=== PATIENT | female | born 1970 | race Caucasian/White ===

== ENCOUNTER 2016-06-21 22:41 | Inpatient (IN) | payer BC ==
[2016-06-21] MEDS ORDERED: Ondansetron 4 MG/2 ML SDV IVPUSH ONE (23:18)
[2016-06-21] MEDS ORDERED: HYDROmorphone 1 MG/ML Syringe IVPUSH ONE (23:18)
[2016-06-21] MEDS: Sodium Chloride 0.9% 1,000 ML IV SCH (23:36)
[2016-06-21] MEDS ORDERED: Ketorolac 30 MG/ML SDV IVPUSH STA (23:38)
[2016-06-22] MEDS ORDERED: Iopamidol 612 MG/ML 150 ML Bottle IVPUSH ONE (00:48)
[2016-06-22] MEDS ORDERED: Diatrizoate Meglumine/Diatrizoate Sodium 37% 120 ML Bottle PO ONE (00:48)
[2016-06-22] MEDS ORDERED: Insulin Regular, Human 100 Units/ML 3 ML Vial SUBCUT STA (01:05)
[2016-06-22] MEDS ORDERED: HYDROmorphone 1 MG/ML Syringe IVPUSH ONE (01:15)
--- NOTE | 2016-06-22 01:18 | EDM.PDOC ---
ED HPI GI/ABDOMINAL - General Chief Complaint: Abdominal Pain Stated Complaint: ABDOMIANL PAIN Time Seen by Provider: 06/21/16 22:53 Source of Information: Reports: Patient, Family (Daughter), RN notes reviewed History Limitations: Reports: No limitations - History of Present Illness INITIAL COMMENTS - FREE TEXT/NARRATIVE: The patient states that she developed right upper quadrant abdominal pain on , 06/09/2016. The pain has been waxing and waning since. She saw her PCP, Zulma Wetzel, earlier today. A CBC, CMP, lipase, CRP, hemoglobin A1c, urinalysis, and H. pylori Ab were obtained. The patient was found to have a WBC count slightly elevated at 10.20 with 1% bandemia. The remainder of the CBC was normal. The patient's blood glucose was found to be substantially elevated at 432, with a hemoglobin A1c of 9.3%. Her alkaline phosphatase was mildly elevated at 174. The remainder of the CMP was normal. The patient's lipase was found to be elevated at 629. Her CRP was elevated at 2.4. Her urinalysis was normal, and her H. pylori Ab was negative. A CT scan of the abdomen and pelvis was scheduled for tomorrow. The patient was prescribed metformin, of which she has taken one dose so far. The patient now presents to the ED with worsening pain. She is unable to describe its character, but notes that it feels similar to the biliary colic that she experienced prior to cholecystectomy in 1989. It radiates to her right mid back. The pain is not modifiable. No recent fever, nausea, or vomiting. The patient has chronic constipation and diarrhea due to irritable bowel syndrome. No recent urinary symptoms. - Related Data Allergies/ADRs: Allergies Allergy/AdvReac Type Severity Reaction Status Date / Time acetaminophen [From Vicodin] Allergy Hives Verified 06/21/16 22:51 hydrocodone [From Vicodin] Allergy Hives Verified 06/21/16 22:51 oxycodone Allergy Cannot Verified 06/21/16 22:51 Remember Home Meds: Home Meds Acetaminophen [Tylenol Extra Strength] 1,000 mg PO ONCALL PRN 06/21/16 [History] Citalopram Hydrobromide [Celexa] 40 mg PO DAILY 06/21/16 [History] Lisinopril 20 mg PO DAILY 06/21/16 [History] metFORMIN [Glucophage XR] 500 mg PO DAILY 06/21/16 [History] Past Medical History HEENT History: Reports: Impaired vision Other HEENT History: Wears glasses Cardiovascular History: Reports: Hypertension Gastrointestinal History: Reports: Hemorrhoids, Irritable bowel syndrome [employer]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: Musculoskeletal History: Reports: Arthritis Psychiatric History: Reports: Anxiety, Depression Endocrine/Metabolic History: Reports: Diabetes, type II, Obesity/BMI 30+ Dermatologic History: Reports: Psoriasis - Past Surgical History HEENT Surgical History: Reports: Adenoidectomy, Naso-sinus surgery (Rhinoplasty) , Oral surgery, Tonsillectomy GI Surgical History: Reports: Cholecystectomy (1997) Female Surgical History: Reports: Tubal ligation Musculoskeletal Surgical History: Reports: Arthroscopic knee (right), Shoulder surgery (left arthroscopic rotator cuff repair) Social & Family History - Tobacco Use Smoking Status *Q: Current Every Day Smoker Years of Tobacco use: 20 Packs/Tins Daily: 1 - Caffeine Use Caffeine Use: Reports: Soda - Alcohol Use Alcohol Use History: No - Recreational Drug Use Recreational Drug Use: Yes Recreational Drug Type: Reports: Cocaine, Oxycodone, Vicodin Recreational Drug Use Frequency: Not Used In Over 6 Months - Living Situation & Occupation Living situation: Reports: , with spouse Occupation: unemployed ED ROS GENERAL - Review of Systems Review Of Systems: See Below Constitutional: Reports: no symptoms HEENT: Reports: No symptoms Respiratory: Reports: No Symptoms Cardiovascular: Reports: No symptoms Endocrine: Reports: no symptoms GI/Abdominal: Reports: Abdominal pain (as per the HPI) : Reports: no symptoms Musculoskeletal: Reports: no symptoms Skin: Reports: no symptoms Neurological: Reports: No Symptoms Psychiatric: Reports: No symptoms Hematologic/Lymphatic: Reports: no symptoms Immunologic: Reports: no symptoms ED EXAM, GI/ABD - Physical Exam Exam: See Below Exam Limited By: No limitations General Appearance: alert, WD/WN, mild distress (appears uncomfortable) Eyes: bilateral: normal appearance, EOMI Ears: normal external exam, hearing grossly normal Nose: normal inspection, no blood Throat/Mouth: Normal inspection, Normal lips, Normal voice, No airway compromise Head: atraumatic, normocephalic Neck: normal inspection, full range of motion Respiratory/Chest: no respiratory distress, lungs clear, normal breath sounds, no accessory muscle use Cardiovascular: normal peripheral pulses, regular rate, rhythm, no gallop, no JVD, no murmur, no rub GI/Abdominal: normal bowel sounds, soft, no organomegaly, no distention, no abnormal bruit, no mass, tenderness (Significant, in the right upper quadrant and epigastrium only. Essentially nontender elsewhere.), other (Obese). No: Mcgarry's sign (Female) Exam: Deferred Rectal (Female) Exam: Deferred Back Exam: normal inspection, full range of motion. No: CVA tenderness (L), CVA tenderness (R) Extremities: normal inspection, normal range of motion, no pedal edema, normal capillary refill Neurological: alert, oriented, normal cognition, no motor/sensory deficits Psychiatric: normal affect Skin Exam: Warm, Dry, Intact, Normal color, No rash Lymphatic: no adenopathy Course - Vital Signs Last Recorded V/S: Last Vital Signs Temp 36.7 C 06/21/16 22:53 Pulse 94 06/21/16 22:53 Resp 16 06/21/16 22:53 BP 178/95 H 06/21/16 22:53 Pulse Ox 99 06/21/16 22:53 - Orders/Labs/Meds Orders: Active Orders 24 hr Category Date Time Status Abdomen Pelvis w Cont [CT] Stat Exams 06/21/16 23:18 Taken Sodium Chloride 0.9% [Normal Saline] 1,000 ml Med 06/21/16 23:30 Active IV ASDIRECTED Medication Orders Sodium Chloride (Normal Saline) 1,000 mls @ 150 mls/hr IV ASDIRECTED KERRI Last Admin: 06/21/16 23:36 Dose: 150 mls/hr Labs: Laboratory Tests 06/21/16 06/21/16 Range/Units 23:29 23:29 WBC 12.37 H (3.98-10.04) K/mm3 RBC 5.00 (3.98-5.22) M/mm3 Hgb 14.7 (11.2-15.7) gm/L Hct 40.7 (34.1-44.9) % MCV 81.4 (79.4-94.8) fl MCH 29.4 (25.6-32.2) pg MCHC 36.1 H (32.2-35.5) g/dl RDW Std Deviation 38.3 (36.4-46.3) fL Plt Count 299 (182-369) K/mm3 MPV 9.7 (9.4-12.3) fl Neutrophils % (Manual) 53 (40-60) % Band Neutrophils % 0 (0-10) % Lymphocytes % (Manual) 40 (20-40) % Atypical Lymphs % 0 % Monocytes % (Manual) 5 (2-10) % Eosinophils % (Manual) 2 (0.7-5.8) % Basophils % (Manual) 0 L (0.1-1.2) Platelet Estimate Adequate Plt Morphology Comment Normal RBC Morph Comment Normal Sodium 135 L (136-145) mEq/L Potassium 3.8 (3.5-5.1) mEq/L Chloride 97 L (98-107) mEq/L Carbon Dioxide 28 (21-32) mEq/L Anion Gap 13.8 (5-15) BUN 14 (7-18) mg/dL Creatinine 0.9 (0.55-1.02) mg/dL Est Cr Clr Drug Dosing 63.92 mL/min Estimated GFR (MDRD) > 60 (>60) mL/min BUN/Creatinine Ratio 15.6 (14-18) Glucose 331 H (74-106) mg/dL Calcium 8.8 (8.5-10.1) mg/dL Total Bilirubin 0.4 (0.2-1.0) mg/dL AST 11 L (15-37) U/L ALT 25 (14-59) U/L Alkaline Phosphatase 157 H (46-116) U/L Total Protein 7.7 (6.4-8.2) g/dl Albumin 3.8 (3.4-5.0) g/dl Globulin 3.9 gm/dL Albumin/Globulin Ratio 1.0 (1-2) Lipase 1056 H (73-393) U/L Meds: Medications Generic Name Dose Route Start Last Admin Trade Name Freq PRN Reason Stop Dose Admin Sodium Chloride 1,000 mls @ 150 mls/hr 06/21/16 23:30 06/21/16 23:36 Normal Saline IV 150 mls/hr ASDIRECTED KERRI Administration Discontinued Medications Generic Name Dose Route Start Last Admin Trade Name Freq PRN Reason Stop Dose Admin Diatrizoate Meglum/Diatrizoate Sod 90 ml 06/22/16 00:48 06/22/16 01:07 Gastrografin 37% PO 06/22/16 00:49 90 ml ONETIME ONE Administration Hydromorphone HCl 1 mg 06/21/16 23:18 Dilaudid IVPUSH 06/21/16 23:19 ONETIME ONE Hydromorphone HCl 1 mg 06/22/16 01:15 06/22/16 01:21 Dilaudid IVPUSH 06/22/16 01:16 1 mg ONETIME ONE Administration Insulin Human Regular 10 unit 06/22/16 01:05 06/22/16 01:27 Humulin R SUBCUT 06/22/16 01:06 10 unit ONETIME STA Administration Protocol Iopamidol 125 ml 06/22/16 00:48 06/22/16 01:06 Isovue-300 (61%) IVPUSH 06/22/16 00:49 125 ml ONETIME ONE Administration Ketorolac Tromethamine 30 mg 06/21/16 23:38 06/21/16 23:41 Toradol IVPUSH 06/21/16 23:39 30 mg ONETIME STA Administration Ondansetron HCl 4 mg 06/21/16 23:18 06/21/16 23:36 Zofran IVPUSH 06/21/16 23:19 4 mg ONETIME ONE Administration - Radiology Interpretation Free Text/Narrative:: CT of the abdomen and pelvis with oral and IV contrast is read by [facility] as "Pancreatic head pancreatitis. The amount of inflammatory changes minimal and the pancreas enhances normally." - Re-Assessments/Exams Free Text/Narrative Re-Assessment/Exam: 06/22/16 01:16 The patient has a history of opioid abuse, and we have been trying to avoid opioids during this ED visit, however, while we don't have the CT scan results back yet, the patient's lipase is up to 1056, and it is most likely that she has pancreatitis. She is complaining of increasing pain. I have ordered 1 mg IV Dilaudid. 06/22/16 01:38 Test results discussed with the patient. It appears that the patient has early pancreatitis. I'm recommending admission to the hospital for IV fluid and pain medication, with possible MRCP. The patient states that she has to go to [place] on 06/25/2016. I could not promise her that she will be fit for discharge by that time, but I feel that if she goes home now, she will almost certainly not be fit on Monday. The patient agrees to be admitted. 06/22/16 01:[address] Singer at 01:39. She agrees to admit the patient. Departure - Departure Time of Disposition: 01:44 Disposition: Admitted As Inpatient 64 Condition: fair Clinical Impression: Acute pancreatitis, Hyperglycemia due to type 2 diabetes mellitus - My Orders Last 24 Hours: My Active Orders 06/21/16 23:18 Abdomen Pelvis w Cont [CT] Stat 06/21/16 23:30 Sodium Chloride 0.9% [Normal Saline] 1,000 ml IV ASDIRECTED - Assessment/Plan Last 24 Hours: My Active Orders 06/21/16 23:18 Abdomen Pelvis w Cont [CT] Stat 06/21/16 23:30 Sodium Chloride 0.9% [Normal Saline] 1,000 ml IV ASDIRECTED
[2016-06-22] MEDS ORDERED: HYDROmorphone 1 MG/ML Syringe IVPUSH PRN (01:57)
[2016-06-22] MEDS ORDERED: Sodium Chloride 0.9% 1,000 ML IV SCH (02:00)
[2016-06-22] MEDS ORDERED: Ketorolac 30 MG/ML SDV IVPUSH ONE ×2 (02:01→08:00)
[2016-06-22] MEDS ORDERED: Ondansetron 4 MG/2 ML SDV IVPUSH PRN (02:04)
[2016-06-22] MEDS ORDERED: LORazepam 2 MG/ML MDV IVPUSH PRN (02:08)
[2016-06-22] MEDS: Prochlorperazine 10 MG/2 ML SDV IVPUSH SCH ×4 (02:33→21:20)
[2016-06-22] MEDS: Sodium Chloride 0.9% 1,000 ML IV SCH (07:10)
[2016-06-22] MEDS ORDERED: Ketorolac 30 MG/ML SDV IVPUSH SCH (09:00)
[2016-06-22] MEDS: Pantoprazole 40 MG Vial IVPUSH SCH ×2 (09:32→21:20)
[2016-06-22] MEDS: Enoxaparin 40 MG/0.4 ML Syringe SUBCUT SCH (09:32)
[2016-06-22] MEDS: Nicotine 21 MG/24 Hr Patch TRDERM SCH (12:36)
[2016-06-22] MEDS: Insulin Aspart 100 Units/ML 3 ML Pen SUBCUT SCH ×3 (12:39→21:32)
[2016-06-22] MEDS ORDERED: 50% Dextrose in Water 50 ML Syringe IVPUSH PRN (13:38)
--- NOTE | 2016-06-22 13:40 | PCM.HP ---
H&P History of Present Illness - General Date of Service: 06/22/16 Admit Problem/Dx: Admission Diagnosis/Problem Admission Diagnosis/Problem Acute pancreatitis Source of Information: Patient, Provider History Limitations: Reports: No limitations - History of Present Illness Initial Comments - Free Text/Narative: 45 year old female with abdominal pain is s/p cholecystectomy, has had intermittent RUQ abdominal pain. Her lipase level is >100o cf 629 on her most recent labs. She is a diabetic on metformin with an markedly elevated Hgb A1C at 9.3. The patient will be admitted for acute pancreatitis, and an AUTI will also be treated. Onset of Symptoms: Reports: gradual Symptom Onset Date: 06/09/16 Duration of Symptoms: Reports: Week(s):, Getting worse, Intermittent, Waxing/ waning Location: Reports: abdomen Quality: Reports: Same as previous episode, Sharp Improves with: Reports: Medication Worsens with: Reports: None Right Upper Abdomen Pain Score (Numeric/FACES): 5 - Related Data Allergies/Adverse Reactions: Allergies Allergy/AdvReac Type Severity Reaction Status Date / Time acetaminophen [From Vicodin] Allergy Hives Verified 06/21/16 22:51 hydrocodone [From Vicodin] Allergy Hives Verified 06/21/16 22:51 oxycodone Allergy Cannot Verified 06/21/16 22:51 Remember Home Medications: Home Meds Acetaminophen [Tylenol Extra Strength] 1,000 mg PO ONCALL PRN 06/21/16 [History] Citalopram Hydrobromide [Celexa] 40 mg PO DAILY 06/21/16 [History] Lisinopril 20 mg PO DAILY 06/21/16 [History] metFORMIN [Glucophage XR] 500 mg PO DAILY 06/21/16 [History] Past Medical History HEENT History: Reports: Impaired vision Other HEENT History: Wears glasses Cardiovascular History: Reports: Hypertension Gastrointestinal History: Reports: Hemorrhoids, Irritable bowel syndrome [employer]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 Musculoskeletal History: Reports: Arthritis Neurological History: Reports: Migraines Psychiatric History: Reports: Anxiety, Depression Endocrine/Metabolic History: Reports: Diabetes, type II, Obesity/BMI 30+ Dermatologic History: Reports: Psoriasis Other Dermatologic History: Lipoma to right breadt and to lower right and left back removed - Infectious Disease History Infectious Disease History: Reports: Chicken pox - Past Surgical History HEENT Surgical History: Reports: Adenoidectomy, Naso-sinus surgery (Rhinoplasty) , Oral surgery, Tonsillectomy GI Surgical History: Reports: Cholecystectomy (1997) Female Surgical History: Reports: Tubal ligation Musculoskeletal Surgical History: Reports: Arthroscopic knee (right), Shoulder surgery (left arthroscopic rotator cuff repair) Social & Family History - Family History Family Medical History: Noncontributory - Tobacco Use Smoking Status *Q: Current Every Day Smoker Years of Tobacco use: 20 Packs/Tins Daily: 1.5 Used Tobacco, but Quit: No Second Hand Smoke Exposure: Yes - Caffeine Use Caffeine Use: Reports: Soda, Tea - Recreational Drug Use Recreational Drug Use: No Recreational Drug Type: Reports: Cocaine, Oxycodone, Vicodin Recreational Drug Use Frequency: Not Used In Over 6 Months - Living Situation & Occupation Living situation: Reports: , with spouse Occupation: unemployed H&P Review of Systems - Review of Systems: Review Of Systems: See Below General: Reports: decreased appetite, weight loss HEENT: Reports: no symptoms Pulmonary: Reports: No Symptoms Cardiovascular: Reports: lightheadedness Gastrointestinal: Reports: Abdominal pain Genitourinary: Reports: no symptoms Musculoskeletal: Reports: back pain Skin: Reports: no symptoms Psychiatric: Reports: no symptoms Neurological: Reports: No Symptoms Hematologic/Lymphatic: Reports: no symptoms Immunologic: Reports: no symptoms Exam - Exam Exam: See Below - Vital Signs Vital Signs: Last Vital Signs Temp 37.1 C 06/22/16 08:12 Pulse 69 06/22/16 08:12 Resp 16 06/22/16 08:12 BP 105/63 06/22/16 08:12 Pulse Ox 96 06/22/16 08:12 Weight: 82.146 kg - Exam Quality Assessment: DVT prophylaxis General: alert, oriented, cooperative HEENT: EACs clear, EOMI, Nares patent, Normal nasal septum, Pupils equal, Pupils reactive Neck: supple, trachea midline Lungs: Normal respiratory effort Cardiovascular: regular rate, regular rhythm Abdomen: normal bowel sounds, soft, organomegaly (NO), distention (NO), guarding (NO), rigidity, rebound (NO), tenderness (MILD) (Female) Exam: Deferred Rectal (Female) Exam: Deferred Back Exam: normal inspection Extremities: normal pulses Skin: warm Neurological: cranial nerves intact Neuro Extensive - Mental Status: alert, oriented x3 Neuro Extensive - Motor, Sensory, Reflexes: CN II-XII intact Psychiatric: alert, normal affect, normal mood - Patient Data Lab Results last 24 hrs: Laboratory Results - last 24 hr 06/22/16 06/22/16 06/22/16 Range/Units 07:56 07:56 12:31 POC Glucose 314 H (70-105) mg/dL Urine Color Yellow (Yellow) Urine Appearance Clear (Clear) Urine pH 6.0 (5.0-8.0) Ur Specific [place] 1.010 (1.005-1.030) Urine Protein 1+ H (Negative) Urine Glucose (UA) 2+ H (Negative) Urine Ketones 1+ H (Negative) Urine Occult Blood 2+ H (Negative) Urine Nitrite Positive H (Negative) Urine Bilirubin Negative (Negative) Urine Urobilinogen 0.2 (0.2-1.0) Ur Leukocyte Esterase Negative (Negative) Urine RBC 5-10 H (0-5) /hpf Urine WBC 5-10 H (0-5) /hpf Ur Epithelial Cells 0-5 (0-5) /hpf Urine Bacteria Many H (FEW) /hpf Urine Mucus Not seen (FEW) /hpf Urine Opiates Screen Presumptive positive H (NEGATIVE) Ur Buprenorphine Scrn Negative (NEGATIVE) Ur Oxycodone Screen Negative (NEGATIVE) Urine Methadone Screen Negative (NEGATIVE) Ur Propoxyphene Screen Negative (NEGATIVE) Ur Barbiturates Screen Negative (NEGATIVE) Ur Tricyclics Screen Negative (NEGATIVE) Ur Phencyclidine Scrn Negative (NEGATIVE) Ur Amphetamine Screen Negative (NEGATIVE) U Methamphetamines Scrn Negative (NEGATIVE) U Benzodiazepines Scrn Presumptive positive H (NEGATIVE) U Cocaine Metab Screen Negative (NEGATIVE) U Marijuana (THC) Screen Negative (NEGATIVE) Result Diagrams: 06/21/16 23:29 06/21/16 23:29 *Q Meaningful Use (ADM) - VTE *Q VTE Criteria *Q: - Stroke *Q Stroke Criteria *Q: - AMI *Q AMI Criteria *Q: - Problem List (1) Acute pancreatitis SNOMED Code(s): 734706879 ICD Code: K85.90 - ACUTE PANCREATITIS WITHOUT NECROSIS OR INFECTION, UNSP Status: Acute Current Visit: Yes (2) Hyperglycemia due to type 2 diabetes mellitus SNOMED Code(s): 162461669991162, 024388057802166 ICD Code: E11.65 - TYPE 2 DIABETES MELLITUS WITH HYPERGLYCEMIA Status: Acute Current Visit: Yes Problem List Initiated/Reviewed/Updated: Yes Orders Last 24hrs: Active Orders 24 hr Category Date Time Status Admission Status [Patient Status] [ADT] Routine ADT 06/22/16 02:00 Active Antiembolic Devices [RC] BID Care 06/22/16 02:06 Active Bedrest Bathroom Privileges [RC] BID Care 06/22/16 02:06 Active Blood Glucose Check, Bedside [RC] QIDACANDBED Care 06/22/16 12:10 Inactive Blood Glucose Check, Bedside [RC] QIDACANDBED Care 06/22/16 12:12 Active NPO [Nothing Per Oral Diet] [DIET] Diet 06/22/16 Breakfast Active BASIC METABOLIC PANEL,BMP [CHEM] DAILY Lab 06/23/16 05:00 Ordered BASIC METABOLIC PANEL,BMP [CHEM] DAILY Lab 06/24/16 05:00 Ordered BASIC METABOLIC PANEL,BMP [CHEM] DAILY Lab 06/25/16 05:00 Ordered CBC WITH AUTO DIFF [HEME] DAILY Lab 06/23/16 05:00 Ordered CBC WITH AUTO DIFF [HEME] DAILY Lab 06/24/16 05:00 Ordered CBC WITH AUTO DIFF [HEME] DAILY Lab 06/25/16 05:00 Ordered LIPASE [CHEM] DAILY Lab 06/23/16 05:00 Ordered LIPASE [CHEM] DAILY Lab 06/24/16 05:00 Ordered LIPASE [CHEM] DAILY Lab 06/25/16 05:00 Ordered Citalopram Hydrobromide Med 06/23/16 09:00 Ordered 40 mg PO DAILY Dextrose 5%-0.9% NaCl [Dextrose 5%-Normal Saline] 1,000 Med 06/22/16 13:45 Ordered ml IV ASDIRECTED Dextrose 50% in Water Med 06/22/16 13:38 Ordered 50 ml IVPUSH ASDIRECTED PRN Enoxaparin [Lovenox] Med 06/22/16 09:00 Active 40 mg SUBCUT DAILY HYDROmorphone [Dilaudid] Med 06/22/16 01:57 Active 1 mg IVPUSH Q4H PRN Insulin Aspart [NovoLOG] Med 06/22/16 12:30 Active See Protocol SUBCUT QIDACANDBED Ketorolac [Toradol] Med 06/22/16 14:00 Active 30 mg IVPUSH Q6H LORazepam [Ativan] Med 06/22/16 02:08 Active 1 mg IVPUSH BEDTIME PRN Nicotine [Habitrol] Med 06/22/16 13:00 Active 21 mg TRDERM Q24H Ondansetron [Zofran] Med 06/22/16 02:04 Active 4 mg IVPUSH Q8H PRN Pantoprazole [ProTONIX IV] Med 06/22/16 09:00 Active 40 mg IVPUSH Q12H Prochlorperazine [Compazine] Med 06/22/16 02:30 Active 10 mg IVPUSH Q6H Remove Patch Med 06/23/16 13:00 Active 0 ea TRDERM Q24H CECILIA Hose [Antiembolic Hose] [OM.PC] Routine Oth 06/22/16 02:06 Ordered Resuscitation Status Routine Resus Stat 06/22/16 02:05 Ordered Medication Orders Dextrose/Water (Dextrose 50% In Water) 50 ml IVPUSH ASDIRECTED PRN PRN Reason: Hypoglycemia Enoxaparin Sodium (Lovenox) 40 mg SUBCUT DAILY [facility] Last Admin: 06/22/16 09:32 Dose: 40 mg Hydromorphone HCl (Dilaudid) 1 mg IVPUSH Q4H PRN PRN Reason: Pain Dextrose/Sodium Chloride (Dextrose 5%-Normal Saline) 1,000 mls @ 150 mls/hr IV ASDIRECTED KERRI Insulin Aspart (Novolog) 0 unit SUBCUT QIDACANDBED KERRI PRN Reason: Protocol Last Admin: 06/22/16 12:39 Dose: 4 units Ketorolac Tromethamine (Toradol) 30 mg IVPUSH Q6H [facility] Stop: 06/25/16 14:01 Lorazepam (Ativan) 1 mg IVPUSH BEDTIME PRN PRN Reason: Anxiety Miscellaneous Information (Remove Patch) 0 ea TRDERM Q24H [facility] Nicotine (Habitrol) 21 mg TRDERM Q24H [facility] Last Admin: 06/22/16 12:36 Dose: Not Given Non-Formulary Medication (Citalopram Hydrobromide) 40 mg PO DAILY [facility] Ondansetron HCl (Zofran) 4 mg IVPUSH Q8H PRN PRN Reason: Nausea/Vomiting Pantoprazole Sodium (Protonix Iv) 40 mg IVPUSH Q12H [facility] Last Admin: 06/22/16 09:32 Dose: 40 mg Prochlorperazine Edisylate (Compazine) 10 mg IVPUSH Q6H [facility] Stop: 06/26/16 02:31 Last Admin: 06/22/16 09:31 Dose: 10 mg Admin: 06/22/16 02:33 Dose: 10 mg Assessment/Plan Comment:: Impression: Acute pancreatitis AUTI Chronic Diabetes Mellitus, poor control Hyperlipidemia IBS HTN Depression Tobacco dependence Plan: IVF NSAIDS Tylenol Anti-emetic Protonix DVT prophylaxis Daily labs Probiotics
[2016-06-22] MEDS: Ketorolac 30 MG/ML SDV IVPUSH SCH ×2 (14:02→21:20)
[2016-06-22] MEDS: Dextrose 5%-0.9% NaCl 1,000 ML IV SCH ×2 (14:03→21:20)
[2016-06-22] MEDS: cefTRIAXone 1 GM in Sodium Chloride 0.9% 100 ML IV SCH (14:29)
[2016-06-23] MEDS: Ketorolac 30 MG/ML SDV IVPUSH SCH ×3 (03:02→14:51)
[2016-06-23] MEDS: Prochlorperazine 10 MG/2 ML SDV IVPUSH SCH ×2 (03:02→08:57)
[2016-06-23] MEDS: Dextrose 5%-0.9% NaCl 1,000 ML IV SCH (04:01)
[2016-06-23] MEDS: Insulin Aspart 100 Units/ML 3 ML Pen SUBCUT SCH ×3 (06:32→17:17)
[2016-06-23] MEDS: Pantoprazole 40 MG Vial IVPUSH SCH (08:55)
[2016-06-23] MEDS: Enoxaparin 40 MG/0.4 ML Syringe SUBCUT SCH (08:57)
[2016-06-23] MEDS ORDERED: Citalopram 20 MG Tab PO SCH (09:00)
--- NOTE | 2016-06-23 09:16 | CT ---
CT abdomen and pelvis Technique: Multiple axial sections were obtained from above the dome of the diaphragm inferiorly through the pubic symphysis. Intravenous and oral contrast was utilized. Delayed images were also obtained through the bladder. Comparison: Previous CT abdomen and pelvis study of 05/23/12 is available. Findings: Liver shows less fatty infiltration than noted previously. Visualized lung bases show nothing acute. Spleen appears within normal limits. Adrenal glands show no nodule. Pancreas shows no mass. Slight inflammatory change suggested around the head of the pancreas. Surgical clips noted from prior cholecystectomy. Aorta shows no aneurysmal dilatation. No retroperitoneal adenopathy or mesenteric abnormalities are seen. No pelvic mass or adenopathy is seen. No bowel dilatation is seen. No inflammatory change or free fluid is seen. Appendix is seen which appears normal. Incidental sigmoid diverticuli are seen. Delayed images show contrast within the bladder. Bone window settings were reviewed which show minimal scattered degenerative change within the spine. Impression: 1. Mild inflammatory change around the head of the pancreas compatible with mild pancreatitis. 2. Other incidental findings which are nonacute. Agree with preliminary report issued by [employer] (preliminary report dictated on 06/22/16, 2:21 AM Central Time) Diagnostic code #3
--- NOTE | 2016-06-23 09:50 | PCM.PN ---
- General Info Date of Service: 06/23/16 Admission Dx/Problem (Free Text): Admission Diagnosis/Problem Admission Diagnosis/Problem Acute pancreatitis Subjective Update: Follow Up - Patient Data Vitals - most recent: Last Vital Signs Temp 36.6 C 06/23/16 08:52 Pulse 86 06/23/16 08:52 Resp 16 06/23/16 08:52 BP 159/94 H 06/23/16 08:52 Pulse Ox 99 06/23/16 08:52 Weight - most recent: 83.506 kg I&O - last 24 hours: Intake & Output 06/22/16 06/23/16 06/23/16 22:59 06:59 14:59 Intake Total 880 2050 Output Total 550 1100 Balance 330 950 Lab Results last 24 hrs: Laboratory Results - last 24 hr 06/22/16 06/22/16 06/22/16 Range/Units 07:56 07:56 12:31 WBC (3.98-10.04) K/mm3 RBC (3.98-5.22) M/mm3 Hgb (11.2-15.7) gm/L Hct (34.1-44.9) % MCV (79.4-94.8) fl MCH (25.6-32.2) pg MCHC (32.2-35.5) g/dl RDW Std Deviation (36.4-46.3) fL Plt Count (182-369) K/mm3 MPV (9.4-12.3) fl Neut % (Auto) (34.0-71.1) % Lymph % (Auto) (19.3-51.7) % [place] % (Auto) (4.7-12.5) % Eos % (Auto) (0.7-5.8) Baso % (Auto) (0.1-1.2) % Neut # (Auto) (1.56-6.13) K/mm3 Lymph # (Auto) (1.18-3.74) K/mm3 [place] # (Auto) (0.24-0.36) K/mm3 Eos # (Auto) (0.04-0.36) K/mm3 Baso # (Auto) (0.01-0.08) K/mm3 Sodium (136-145) mEq/L Potassium (3.5-5.1) mEq/L Chloride (98-107) mEq/L Carbon Dioxide (21-32) mEq/L Anion Gap (5-15) BUN (7-18) mg/dL Creatinine (0.55-1.02) mg/dL Est Cr Clr Drug Dosing mL/min Estimated GFR (MDRD) (>60) mL/min BUN/Creatinine Ratio (14-18) Glucose (74-106) mg/dL POC Glucose 314 H (70-105) mg/dL Calcium (8.5-10.1) mg/dL Lipase (73-393) U/L Urine Color Yellow (Yellow) Urine Appearance Clear (Clear) Urine pH 6.0 (5.0-8.0) Ur Specific [place] 1.010 (1.005-1.030) Urine Protein 1+ H (Negative) Urine Glucose (UA) 2+ H (Negative) Urine Ketones 1+ H (Negative) Urine Occult Blood 2+ H (Negative) Urine Nitrite Positive H (Negative) Urine Bilirubin Negative (Negative) Urine Urobilinogen 0.2 (0.2-1.0) Ur Leukocyte Esterase Negative (Negative) Urine RBC 5-10 H (0-5) /hpf Urine WBC 5-10 H (0-5) /hpf Ur Epithelial Cells 0-5 (0-5) /hpf Urine Bacteria Many H (FEW) /hpf Urine Mucus Not seen (FEW) /hpf Urine Opiates Screen Presumptive positive H (NEGATIVE) Ur Buprenorphine Scrn Negative (NEGATIVE) Ur Oxycodone Screen Negative (NEGATIVE) Urine Methadone Screen Negative (NEGATIVE) Ur Propoxyphene Screen Negative (NEGATIVE) Ur Barbiturates Screen Negative (NEGATIVE) Ur Tricyclics Screen Negative (NEGATIVE) Ur Phencyclidine Scrn Negative (NEGATIVE) Ur Amphetamine Screen Negative (NEGATIVE) U Methamphetamines Scrn Negative (NEGATIVE) U Benzodiazepines Scrn Presumptive positive H (NEGATIVE) U Cocaine Metab Screen Negative (NEGATIVE) U Marijuana (THC) Screen Negative (NEGATIVE) 06/22/16 06/22/16 06/23/16 Range/Units 17:32 21:31 05:55 WBC 6.98 (3.98-10.04) K/mm3 RBC 4.53 (3.98-5.22) M/mm3 Hgb 13.3 (11.2-15.7) gm/L Hct 37.7 (34.1-44.9) % MCV 83.2 (79.4-94.8) fl MCH 29.4 (25.6-32.2) pg MCHC 35.3 (32.2-35.5) g/dl RDW Std Deviation 39.1 (36.4-46.3) fL Plt Count 267 (182-369) K/mm3 MPV 9.8 (9.4-12.3) fl Neut % (Auto) 52.5 (34.0-71.1) % Lymph % (Auto) 33.8 (19.3-51.7) % [place] % (Auto) 6.7 (4.7-12.5) % Eos % (Auto) 6.0 H (0.7-5.8) Baso % (Auto) 0.9 (0.1-1.2) % Neut # (Auto) 3.66 (1.56-6.13) K/mm3 Lymph # (Auto) 2.36 (1.18-3.74) K/mm3 [place] # (Auto) 0.47 H (0.24-0.36) K/mm3 Eos # (Auto) 0.42 H (0.04-0.36) K/mm3 Baso # (Auto) 0.06 (0.01-0.08) K/mm3 Sodium (136-145) mEq/L Potassium (3.5-5.1) mEq/L Chloride (98-107) mEq/L Carbon Dioxide (21-32) mEq/L Anion Gap (5-15) BUN (7-18) mg/dL Creatinine (0.55-1.02) mg/dL Est Cr Clr Drug Dosing mL/min Estimated GFR (MDRD) (>60) mL/min BUN/Creatinine Ratio (14-18) Glucose (74-106) mg/dL POC Glucose 293 H 244 H (70-105) mg/dL Calcium (8.5-10.1) mg/dL Lipase (73-393) U/L Urine Color (Yellow) Urine Appearance (Clear) Urine pH (5.0-8.0) Ur Specific [place] (1.005-1.030) Urine Protein (Negative) Urine Glucose (UA) (Negative) Urine Ketones (Negative) Urine Occult Blood (Negative) Urine Nitrite (Negative) Urine Bilirubin (Negative) Urine Urobilinogen (0.2-1.0) Ur Leukocyte Esterase (Negative) Urine RBC (0-5) /hpf Urine WBC (0-5) /hpf Ur Epithelial Cells (0-5) /hpf Urine Bacteria (FEW) /hpf Urine Mucus (FEW) /hpf Urine Opiates Screen (NEGATIVE) Ur Buprenorphine Scrn (NEGATIVE) Ur Oxycodone Screen (NEGATIVE) Urine Methadone Screen (NEGATIVE) Ur Propoxyphene Screen (NEGATIVE) Ur Barbiturates Screen (NEGATIVE) Ur Tricyclics Screen (NEGATIVE) Ur Phencyclidine Scrn (NEGATIVE) Ur Amphetamine Screen (NEGATIVE) U Methamphetamines Scrn (NEGATIVE) U Benzodiazepines Scrn (NEGATIVE) U Cocaine Metab Screen (NEGATIVE) U Marijuana (THC) Screen (NEGATIVE) 06/23/16 06/23/16 Range/Units 05:55 06:31 WBC (3.98-10.04) K/mm3 RBC (3.98-5.22) M/mm3 Hgb (11.2-15.7) gm/L Hct (34.1-44.9) % MCV (79.4-94.8) fl MCH (25.6-32.2) pg MCHC (32.2-35.5) g/dl RDW Std Deviation (36.4-46.3) fL Plt Count (182-369) K/mm3 MPV (9.4-12.3) fl Neut % (Auto) (34.0-71.1) % Lymph % (Auto) (19.3-51.7) % [place] % (Auto) (4.7-12.5) % Eos % (Auto) (0.7-5.8) Baso % (Auto) (0.1-1.2) % Neut # (Auto) (1.56-6.13) K/mm3 Lymph # (Auto) (1.18-3.74) K/mm3 [place] # (Auto) (0.24-0.36) K/mm3 Eos # (Auto) (0.04-0.36) K/mm3 Baso # (Auto) (0.01-0.08) K/mm3 Sodium 138 (136-145) mEq/L Potassium 3.7 (3.5-5.1) mEq/L Chloride 105 (98-107) mEq/L Carbon Dioxide 25 (21-32) mEq/L Anion Gap 11.7 (5-15) BUN 7 (7-18) mg/dL Creatinine 0.6 (0.55-1.02) mg/dL Est Cr Clr Drug Dosing 95.88 mL/min Estimated GFR (MDRD) > 60 (>60) mL/min BUN/Creatinine Ratio 11.7 L (14-18) Glucose 287 H (74-106) mg/dL POC Glucose 251 H (70-105) mg/dL Calcium 7.5 L (8.5-10.1) mg/dL Lipase 255 (73-393) U/L Urine Color (Yellow) Urine Appearance (Clear) Urine pH (5.0-8.0) Ur Specific [place] (1.005-1.030) Urine Protein (Negative) Urine Glucose (UA) (Negative) Urine Ketones (Negative) Urine Occult Blood (Negative) Urine Nitrite (Negative) Urine Bilirubin (Negative) Urine Urobilinogen (0.2-1.0) Ur Leukocyte Esterase (Negative) Urine RBC (0-5) /hpf Urine WBC (0-5) /hpf Ur Epithelial Cells (0-5) /hpf Urine Bacteria (FEW) /hpf Urine Mucus (FEW) /hpf Urine Opiates Screen (NEGATIVE) Ur Buprenorphine Scrn (NEGATIVE) Ur Oxycodone Screen (NEGATIVE) Urine Methadone Screen (NEGATIVE) Ur Propoxyphene Screen (NEGATIVE) Ur Barbiturates Screen (NEGATIVE) Ur Tricyclics Screen (NEGATIVE) Ur Phencyclidine Scrn (NEGATIVE) Ur Amphetamine Screen (NEGATIVE) U Methamphetamines Scrn (NEGATIVE) U Benzodiazepines Scrn (NEGATIVE) U Cocaine Metab Screen (NEGATIVE) U Marijuana (THC) Screen (NEGATIVE) Med Orders - Current: Current Medications Citalopram Hydrobromide (Celexa) 40 mg PO DAILY [facility] Last Admin: 06/23/16 08:57 Dose: 40 mg Dextrose/Water (Dextrose 50% In Water) 50 ml IVPUSH ASDIRECTED PRN PRN Reason: Hypoglycemia Enoxaparin Sodium (Lovenox) 40 mg SUBCUT DAILY [facility] Last Admin: 06/23/16 08:57 Dose: 40 mg Hydromorphone HCl (Dilaudid) 1 mg IVPUSH Q4H PRN PRN Reason: Pain Dextrose/Sodium Chloride (Dextrose 5%-Normal Saline) 1,000 mls @ 150 mls/hr IV ASDIRECTED [facility] Last Admin: 06/23/16 04:01 Dose: 150 mls/hr Ceftriaxone Sodium 1 gm/ (Sodium Chloride) 100 mls @ 200 mls/hr IV Q24H [facility] Last Admin: 06/22/16 14:29 Dose: 200 mls/hr Insulin Aspart (Novolog) 0 unit SUBCUT QIDACANDBED [facility] PRN Reason: Protocol Last Admin: 06/23/16 06:32 Dose: 3 units Ketorolac Tromethamine (Toradol) 30 mg IVPUSH Q6H [facility] Stop: 06/23/16 20:01 Last Admin: 06/23/16 08:57 Dose: 30 mg Lorazepam (Ativan) 1 mg IVPUSH BEDTIME PRN PRN Reason: Anxiety Miscellaneous Information (Remove Patch) 0 ea TRDERM Q24H [facility] Nicotine (Habitrol) 21 mg TRDERM Q24H [facility] Last Admin: 06/22/16 12:36 Dose: Not Given Ondansetron HCl (Zofran) 4 mg IVPUSH Q8H PRN PRN Reason: Nausea/Vomiting Pantoprazole Sodium (Protonix Iv) 40 mg IVPUSH Q12H [facility] Last Admin: 06/23/16 08:55 Dose: 40 mg Prochlorperazine Edisylate (Compazine) 10 mg IVPUSH Q6H [facility] Stop: 06/26/16 02:31 Last Admin: 06/23/16 08:57 Dose: 10 mg Discontinued Medications Diatrizoate Meglum/Diatrizoate Sod (Gastrografin 37%) 90 ml PO ONETIME ONE Stop: 06/22/16 00:49 Last Admin: 06/22/16 01:07 Dose: 90 ml Hydromorphone HCl (Dilaudid) 1 mg IVPUSH ONETIME ONE Stop: 06/21/16 23:19 Last Admin: 06/22/16 06:34 Dose: Not Given Hydromorphone HCl (Dilaudid) 1 mg IVPUSH ONETIME ONE Stop: 06/22/16 01:16 Last Admin: 06/22/16 01:21 Dose: 1 mg Sodium Chloride (Normal Saline) 1,000 mls @ 150 mls/hr IV ASDIRECTED [facility] Last Admin: 06/22/16 07:10 Dose: 150 mls/hr Sodium Chloride (Normal Saline) 1,000 mls @ 150 mls/hr IV ASDIRECTED [facility] Insulin Human Regular (Humulin R) 10 unit SUBCUT ONETIME STA PRN Reason: Protocol Stop: 06/22/16 01:06 Last Admin: 06/22/16 01:27 Dose: 10 unit Iopamidol (Isovue-300 (61%)) 125 ml IVPUSH ONETIME ONE Stop: 06/22/16 00:49 Last Admin: 06/22/16 01:06 Dose: 125 ml Ketorolac Tromethamine (Toradol) 30 mg IVPUSH ONETIME STA Stop: 06/21/16 23:39 Last Admin: 06/21/16 23:41 Dose: 30 mg Ketorolac Tromethamine (Toradol) 30 mg IVPUSH Q6H [facility] Ketorolac Tromethamine (Toradol) 60 mg IVPUSH ONETIME ONE Stop: 06/22/16 02:02 Last Admin: 06/22/16 02:32 Dose: 60 mg Ketorolac Tromethamine (Toradol) 60 mg IVPUSH ONETIME ONE Stop: 06/22/16 08:01 Last Admin: 06/22/16 09:27 Dose: 60 mg Ondansetron HCl (Zofran) 4 mg IVPUSH ONETIME ONE Stop: 06/21/16 23:19 Last Admin: 06/21/16 23:36 Dose: 4 mg - Plan Plan:: Impression: Acute pancreatitis AUTI Chronic Diabetes Mellitus, poor control Hyperlipidemia IBS HTN Depression Tobacco dependence Plan: IVF NSAIDS Tylenol Anti-emetic Protonix DVT prophylaxis Daily labs Probiotics
[2016-06-23] MEDS: Nicotine 21 MG/24 Hr Patch TRDERM SCH (12:03)
--- NOTE | 2016-06-23 13:29 | PCM.SN ---
- Free Text/Narrative Note: Patient is doing relatively well. She has no acute issues. UA is really mild to suggest UTI. She is asymptomatic. Lipase is at 255, She is currently tolerating clear liquid diet. Will advance diet and if able to tolerate, d/c later today.
--- NOTE | 2016-06-23 13:42 | PCM.DCSUM1 ---
Discharge Summary - Hospital Course Brief History: This is a 45 year old female with hx/o cholecystectomy and diabetes who comes in with c/o intermittent RUQ abdominal pain associated with an abnormal lipase level of 1056 and was admitted for acute pancreatitis. - Discharge Data Discharge Date: 06/23/16 Discharge Disposition: Home, Self-Care 01 Condition: Good - Discharge Diagnosis/Problem(s) (1) Acute pancreatitis SNOMED Code(s): 317243658 ICD Code: K85.90 - ACUTE PANCREATITIS WITHOUT NECROSIS OR INFECTION, UNSP Status: Acute (2) Hyperglycemia due to type 2 diabetes mellitus SNOMED Code(s): 222264039734967, 322145005820086 ICD Code: E11.65 - TYPE 2 DIABETES MELLITUS WITH HYPERGLYCEMIA Status: Chronic Qualifiers: Diabetes mellitus fdc insulin use: without extermination supervisor use Qualified Code(s): E11.65 - Type 2 diabetes mellitus with hyperglycemia (3) UTI (urinary tract infection) SNOMED Code(s): 10871620 ICD Code: N39.0 - URINARY TRACT INFECTION, SITE NOT SPECIFIED Status: Resolved Qualifiers: Urinary tract infection type: acute cystitis Hematuria presence: without hematuria Qualified Code(s): N30.00 - Acute cystitis without hematuria (4) Fatty liver SNOMED Code(s): 213593435 ICD Code: K76.0 - FATTY (CHANGE OF) LIVER, NOT ELSEWHERE CLASSIFIED Status : Chronic - Patient Summary/Data Operative Procedure(s) Performed: None Complications: None Consults: None Hospital Course: Patient was primarily admitted for mild pancreatitis with unknown etiology. She denies being an alcoholic or hx/o gallstones. Her CT scan showed mild inflammatory changes around the pancreatic head. However she carries a medical diagnoses of diabetes and fatty liver disease as her risk factors. On admission, she was primarily provided supportive care and pain medications. Her lipase was trended down until she was back to normal. Her hospital course was fairly uncomplicated. However she had a mild urinary tract infection but was treated with intravenous Rocephin. Patient has done well since admission. She is now ready for discharge. She was advised to perform lifestyle modifications (i.e. regular exercise, proper diet and weight loss). She will be provided with additional course of oral Cipro 250 mg (2 doses only) po BID to start in am to complete her antibiotic treatment. Patient was advised to come back or seek immediate care should her symptoms persist or get worse. Patient expressed understanding and in agreement with the plans as discussed above. All questions were answered. On the day of discharge, her PCP was called and updated about her discharge care plans. - Patient Instructions Diet: Heart Healthy Diet, Diabetic Diet Activity: As Tolerated Driving: May Drive Today Showering/Bathing: May Shower Notify Provider of: Fever, Increased Pain, Nausea and/or Vomiting Other/Special Instructions: - Take all medications as directed. - Low fat/ cholesterol diet and advance in 1 week. - Follow up with PCP in 1-2 weeks - Discharge Plan Prescriptions/Med Rec: Ciprofloxacin HCl [Cipro] 250 mg PO BID #2 tablet Home Medications: Home Meds Acetaminophen [Tylenol Extra Strength] 1,000 mg PO ONCALL PRN 06/21/16 [History] Citalopram Hydrobromide [Celexa] 40 mg PO DAILY 06/21/16 [History] Lisinopril 20 mg PO DAILY 06/21/16 [History] metFORMIN [Glucophage XR] 500 mg PO BID 06/21/16 [History] ALPRAZolam [Xanax] 0.5 mg PO BID PRN 06/23/16 [History] Ciprofloxacin HCl [Cipro] 250 mg PO BID #2 tablet 06/23/16 [Rx] Ibuprofen 200 - 600 mg PO Q6H PRN 06/23/16 [History] hydrOXYzine HCl [Atarax] 25 - 50 mg PO TID PRN 06/23/16 [History] traZODone 25 - 50 mg PO BEDTIME PRN 06/23/16 [History] Patient Handouts: Smoking Cessation, Tips for Success, [id number], Acute Pancreatitis, [id number], Urinary Tract Infection, Adult, [id number] Referrals: Zulma Wetzel PA [Primary Care Provider] - - Discharge Summary/Plan Comment DC Time >30 min.: No Discharge Summary/Plan Comment: Discharge to Home - General Info Date of Service: 06/23/16 Admission Dx/Problem (Free Text: Admission Diagnosis/Problem Admission Diagnosis/Problem Acute pancreatitis Subjective Update: Follow Up Functional Status: Reports: pain controlled, tolerating diet, ambulating, urinating. Denies: new symptoms - Review of Systems General: Denies: Fever, Chills HEENT: Reports: no symptoms Pulmonary: Denies: shortness of breath Cardiovascular: Denies: Chest Pain Gastrointestinal: Denies: Abdominal pain, Decreased appetite, Difficulty swallowing, Nausea, Vomiting Genitourinary: Reports: no symptoms Musculoskeletal: Reports: no symptoms Skin: Reports: no symptoms Neurological: Reports: No Symptoms Psychiatric: Denies: depression, anxiety, hallucinations Systems Review Comment: No overnight or acute issues. She is tolerating clear liquids. Lipase is now at 255. - Patient Data Vitals - Most Recent: Last Vital Signs Temp 36.6 C 06/23/16 08:52 Pulse 86 06/23/16 08:52 Resp 16 06/23/16 08:52 BP 159/94 H 06/23/16 08:52 Pulse Ox 99 06/23/16 08:52 Weight - Most Recent: 83.506 kg I&O - Last 24 hours: Intake & Output 06/22/16 06/23/16 06/23/16 22:59 06:59 14:59 Intake Total 880 2050 Output Total 550 1100 Balance 330 950 Lab Results - Last 24 hrs: Laboratory Results - last 24 hr 06/22/16 06/22/16 06/23/16 Range/Units 17:32 21:31 05:55 WBC 6.98 (3.98-10.04) K/mm3 RBC 4.53 (3.98-5.22) M/mm3 Hgb 13.3 (11.2-15.7) gm/L Hct 37.7 (34.1-44.9) % MCV 83.2 (79.4-94.8) fl MCH 29.4 (25.6-32.2) pg MCHC 35.3 (32.2-35.5) g/dl RDW Std Deviation 39.1 (36.4-46.3) fL Plt Count 267 (182-369) K/mm3 MPV 9.8 (9.4-12.3) fl Neut % (Auto) 52.5 (34.0-71.1) % Lymph % (Auto) 33.8 (19.3-51.7) % [place] % (Auto) 6.7 (4.7-12.5) % Eos % (Auto) 6.0 H (0.7-5.8) Baso % (Auto) 0.9 (0.1-1.2) % Neut # (Auto) 3.66 (1.56-6.13) K/mm3 Lymph # (Auto) 2.36 (1.18-3.74) K/mm3 [place] # (Auto) 0.47 H (0.24-0.36) K/mm3 Eos # (Auto) 0.42 H (0.04-0.36) K/mm3 Baso # (Auto) 0.06 (0.01-0.08) K/mm3 Sodium (136-145) mEq/L Potassium (3.5-5.1) mEq/L Chloride (98-107) mEq/L Carbon Dioxide (21-32) mEq/L Anion Gap (5-15) BUN (7-18) mg/dL Creatinine (0.55-1.02) mg/dL Est Cr Clr Drug Dosing mL/min Estimated GFR (MDRD) (>60) mL/min BUN/Creatinine Ratio (14-18) Glucose (74-106) mg/dL POC Glucose 293 H 244 H (70-105) mg/dL Calcium (8.5-10.1) mg/dL Lipase (73-393) U/L 06/23/16 06/23/16 06/23/16 Range/Units 05:55 06:31 11:36 WBC (3.98-10.04) K/mm3 RBC (3.98-5.22) M/mm3 Hgb (11.2-15.7) gm/L Hct (34.1-44.9) % MCV (79.4-94.8) fl MCH (25.6-32.2) pg MCHC (32.2-35.5) g/dl RDW Std Deviation (36.4-46.3) fL Plt Count (182-369) K/mm3 MPV (9.4-12.3) fl Neut % (Auto) (34.0-71.1) % Lymph % (Auto) (19.3-51.7) % [place] % (Auto) (4.7-12.5) % Eos % (Auto) (0.7-5.8) Baso % (Auto) (0.1-1.2) % Neut # (Auto) (1.56-6.13) K/mm3 Lymph # (Auto) (1.18-3.74) K/mm3 [place] # (Auto) (0.24-0.36) K/mm3 Eos # (Auto) (0.04-0.36) K/mm3 Baso # (Auto) (0.01-0.08) K/mm3 Sodium 138 (136-145) mEq/L Potassium 3.7 (3.5-5.1) mEq/L Chloride 105 (98-107) mEq/L Carbon Dioxide 25 (21-32) mEq/L Anion Gap 11.7 (5-15) BUN 7 (7-18) mg/dL Creatinine 0.6 (0.55-1.02) mg/dL Est Cr Clr Drug Dosing 95.88 mL/min Estimated GFR (MDRD) > 60 (>60) mL/min BUN/Creatinine Ratio 11.7 L (14-18) Glucose 287 H (74-106) mg/dL POC Glucose 251 H 254 H (70-105) mg/dL Calcium 7.5 L (8.5-10.1) mg/dL Lipase 255 (73-393) U/L [place] Results - Last 24 hrs: Microbiology 06/22/16 07:56 Urine Culture - Preliminary Urine, Clean Catch Staphylococcus Species Med Orders - Current: Current Medications Citalopram Hydrobromide (Celexa) 40 mg PO DAILY [facility] Last Admin: 06/23/16 08:57 Dose: 40 mg Dextrose/Water (Dextrose 50% In Water) 50 ml IVPUSH ASDIRECTED PRN PRN Reason: Hypoglycemia Enoxaparin Sodium (Lovenox) 40 mg SUBCUT DAILY [facility] Last Admin: 06/23/16 08:57 Dose: 40 mg Hydromorphone HCl (Dilaudid) 1 mg IVPUSH Q4H PRN PRN Reason: Pain Ceftriaxone Sodium 1 gm/ (Sodium Chloride) 100 mls @ 200 mls/hr IV Q24H [facility] Last Admin: 06/22/16 14:29 Dose: 200 mls/hr Insulin Aspart (Novolog) 0 unit SUBCUT QIDACANDBED [facility] PRN Reason: Protocol Last Admin: 06/23/16 12:14 Dose: 3 units Ketorolac Tromethamine (Toradol) 30 mg IVPUSH Q6H [facility] Stop: 06/23/16 20:01 Last Admin: 06/23/16 08:57 Dose: 30 mg Lorazepam (Ativan) 1 mg IVPUSH BEDTIME PRN PRN Reason: Anxiety Miscellaneous Information (Remove Patch) 0 ea TRDERM Q24H [facility] Last Admin: 06/23/16 12:04 Dose: Not Given Nicotine (Habitrol) 21 mg TRDERM Q24H [facility] Last Admin: 06/23/16 12:03 Dose: Not Given Ondansetron HCl (Zofran) 4 mg IVPUSH Q8H PRN PRN Reason: Nausea/Vomiting Pantoprazole Sodium (Protonix Iv) 40 mg IVPUSH Q12H [facility] Last Admin: 06/23/16 08:55 Dose: 40 mg Prochlorperazine Edisylate (Compazine) 10 mg IVPUSH Q6H [facility] Stop: 06/26/16 02:31 Last Admin: 06/23/16 08:57 Dose: 10 mg Discontinued Medications Diatrizoate Meglum/Diatrizoate Sod (Gastrografin 37%) 90 ml PO ONETIME ONE Stop: 06/22/16 00:49 Last Admin: 06/22/16 01:07 Dose: 90 ml Hydromorphone HCl (Dilaudid) 1 mg IVPUSH ONETIME ONE Stop: 06/21/16 23:19 Last Admin: 06/22/16 06:34 Dose: Not Given Hydromorphone HCl (Dilaudid) 1 mg IVPUSH ONETIME ONE Stop: 06/22/16 01:16 Last Admin: 06/22/16 01:21 Dose: 1 mg Sodium Chloride (Normal Saline) 1,000 mls @ 150 mls/hr IV ASDIRECTED [facility] Last Admin: 06/22/16 07:10 Dose: 150 mls/hr Sodium Chloride (Normal Saline) 1,000 mls @ 150 mls/hr IV ASDIRECTED [facility] Dextrose/Sodium Chloride (Dextrose 5%-Normal Saline) 1,000 mls @ 150 mls/hr IV ASDIRECTED [facility] Last Admin: 06/23/16 04:01 Dose: 150 mls/hr Insulin Human Regular (Humulin R) 10 unit SUBCUT ONETIME STA PRN Reason: Protocol Stop: 06/22/16 01:06 Last Admin: 06/22/16 01:27 Dose: 10 unit Iopamidol (Isovue-300 (61%)) 125 ml IVPUSH ONETIME ONE Stop: 06/22/16 00:49 Last Admin: 06/22/16 01:06 Dose: 125 ml Ketorolac Tromethamine (Toradol) 30 mg IVPUSH ONETIME [facility] Stop: 06/21/16 23:39 Last Admin: 06/21/16 23:41 Dose: 30 mg Ketorolac Tromethamine (Toradol) 30 mg IVPUSH Q6H [facility] Ketorolac Tromethamine (Toradol) 60 mg IVPUSH ONETIME ONE Stop: 06/22/16 02:02 Last Admin: 06/22/16 02:32 Dose: 60 mg Ketorolac Tromethamine (Toradol) 60 mg IVPUSH ONETIME ONE Stop: 06/22/16 08:01 Last Admin: 06/22/16 09:27 Dose: 60 mg Ondansetron HCl (Zofran) 4 mg IVPUSH ONETIME ONE Stop: 06/21/16 23:19 Last Admin: 06/21/16 23:36 Dose: 4 mg - Exam General: Reports: alert, oriented, cooperative, no acute distress, other (Obese) HEENT: Reports: Pupils equal, Pupils reactive, EOMI, Mucous membr. moist/pink Neck: Reports: supple, trachea midline, no JVD, no thyromegaly Lungs: Reports: Clear to auscultation, Normal respiratory effort Cardiovascular: Reports: Regular Rate, Regular Rhythm Abdomen: Reports: bowel sounds present, soft, no tenderness, no distension. Denies: rigidity, rebound, guarding (Female) Exam: Deferred Rectal (Female) Exam: Deferred Back Exam: Reports: normal inspection, decreased range of motion Extremities: Reports: no edema, normal pulses, no tenderness/swelling, no clubbing, no cyanosis, no calf tenderness Skin: Reports: warm, dry, intact Neurological: Reports: no new focal deficit Psy/Mental Status: Reports: alert, normal affect, normal mood *Q Meaningful Use (DIS) - VTE *Q VTE Criteria *Q: - Stroke *Q Stroke Criteria *Q: - AMI *Q AMI Criteria *Q:
[2016-06-23] MEDS ORDERED: Prochlorperazine 10 MG/2 ML SDV IVPUSH PRN (14:16)
[2016-06-23] MEDS: cefTRIAXone 1 GM in Sodium Chloride 0.9% 100 ML IV SCH (14:51)
[2016-06-23 15:50] VITALS: BP 156/89
[2016-06-23] MEDS ORDERED: Pantoprazole 40 MG Tab.CR PO SCH (21:00)
[2016-06-24] MEDS ORDERED: Lisinopril 20 MG Tab PO SCH (09:00)
== END 2016-06-23 19:05 | disposition home or self-care (01) | DRG 282 ==
LOC: JD.ED 22:41 → JD.MS 06-22 01:46
PROVIDERS: ADMIT Internal Medicine Cardiovascular Disease; ATTEND Internal Medicine Cardiovascular Disease
DX: K85.90 Acute pancreatitis without necrosis or infection, unspecified (principal); E11.65 Type 2 diabetes mellitus with hyperglycemia; Z79.84 Long term (current) use of oral hypoglycemic drugs; N39.0 Urinary tract infection, site not specified; K76.0 Fatty (change of) liver, not elsewhere classified; E66.9 Obesity, unspecified; Z68.30 Body mass index [BMI] 30.0-30.9, adult; I10 Essential (primary) hypertension; M19.90 Unspecified osteoarthritis, unspecified site; Z90.49 Acquired absence of other specified parts of digestive tract; F32.9 Major depressive disorder, single episode, unspecified; F41.9 Anxiety disorder, unspecified; F17.200 Nicotine dependence, unspecified, uncomplicated; Z79.899 Other long term (current) drug therapy; Z88.6 Allergy status to analgesic agent
CPT/HCPCS: 36415; 74177; 74177-26; 80048; 80053; 80306; 81001; 82962; 83690; 85025; 87086; 87088; 87186; 96361; 96372; 96374; 96375; 99238; 99285; 99285-25; A9270-GY; C9113; G0480; J0696; J0780; J1170; J1650; J1815-GY; J1817; J1885; J2405; J7030; J7040; J7042; Q9963; Q9967

== ENCOUNTER 2017-05-24 23:14 | Emergency (ER) | payer SELFPAY ==
[2017-05-24 23:28] VITALS: BP 196/103
[2017-05-25] MEDS ORDERED: Orphenadrine 100 MG Tab.ER PO STA (00:08)
--- NOTE | 2017-05-25 00:14 | EDM.PDOC ---
ED HPI GENERAL MEDICAL PROBLEM - General Chief Complaint: Back Pain or Injury Stated Complaint: LOWER BACK & RIGHT LEG PAIN Time Seen by Provider: 05/24/17 23:25 Source of Information: Reports: Patient History Limitations: Reports: No Limitations - History of Present Illness INITIAL COMMENTS - FREE TEXT/NARRATIVE: The patient states that she has had pain in her sacrum radiating to her right buttock, along with entire right lower extremity achiness since Monday, 2017. She denies any trauma or other injury to the area. She states that she has had similar pain on and off since she was a teenager, due to "sciatica". She states that she has previously undergone x-rays, but has never had a MRI of her lower back. The patient states that she saw a chiropractor yesterday, 05/24/2017. He adjusted her spine, but it did not help. When asked what brings her in tonight, specifically, the patient states that she was having difficulty sleeping with her back pain, and was hoping that I could give her something that would allow her to sleep. The patient's PCP is Zulma Wetzel. The patient has not spoken to Ms. Wetzel about her current complaint. 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 Right Lower Back Pain Score (Numeric/FACES): 10 - Related Data Allergies Allergy/AdvReac Type Severity Reaction Status Date / Time hydrocodone [From Vicodin] Allergy Hives Verified 05/24/17 23:24 oxycodone Allergy Cannot Verified 05/24/17 23:24 Remember Home Meds: Home Meds Acetaminophen [Tylenol Extra Strength] 1,000 mg PO ONCALL PRN 06/21/16 [History] Citalopram Hydrobromide [Celexa] 40 mg PO DAILY 06/21/16 [History] Lisinopril 20 mg PO DAILY 06/21/16 [History] metFORMIN [Glucophage XR] 500 mg PO BID 06/21/16 [History] ALPRAZolam [Xanax] 0.5 mg PO BID PRN 06/23/16 [History] Ibuprofen 200 - 600 mg PO Q6H PRN 06/23/16 [History] hydrOXYzine HCl [Atarax] 25 - 50 mg PO TID PRN 06/23/16 [History] traZODone 25 - 50 mg PO BEDTIME PRN 06/23/16 [History] Orphenadrine [Norflex] 1 tab PO Q12H PRN #14 tab.er 05/25/17 [Rx] Past Medical History HEENT History: Reports: Impaired Vision Other HEENT History: Wears glasses Cardiovascular History: Reports: Hypertension Gastrointestinal History: Reports: Hemorrhoids, Irritable Bowel Syndrome ASSAYER History: Reports: Musculoskeletal History: Reports: Arthritis Psychiatric History: Reports: Addiction (Alcohol, cocaine, opioids), Anxiety, Depression Endocrine/Metabolic History: Reports: Diabetes, Type II, Obesity/BMI 30+ Dermatologic History: Reports: Psoriasis - Infectious Disease History Infectious Disease History: Reports: Chicken Pox - Past Surgical History HEENT Surgical History: Reports: Adenoidectomy, Naso-Sinus Surgery (Rhinoplasty) , Oral Surgery, Tonsillectomy GI Surgical History: Reports: Cholecystectomy (1997) Female Surgical History: Reports: Tubal Ligation Musculoskeletal Surgical History: Reports: Arthroscopic Knee (right), Shoulder Surgery (left rotator cuff repair) Dermatological Surgical History: Reports: Other (See Below) (Several lipomas removed) Social & Family History - Family History Family Medical History: Noncontributory - Tobacco Use Smoking Status *Q: Current Every Day Smoker Years of Tobacco use: 34 Packs/Tins Daily: 1 Packs/Tins Daily Comment: Down form 2 ppd - Caffeine Use Caffeine Use: Reports: Soda, Tea - Alcohol Use Alcohol Use History: Yes Date/Time of Last Drink Comment: None since around 1997 - Recreational Drug Use Recreational Drug Use: Yes Drug Use in Last 12 Months: No Recreational Drug Type: Reports: Cocaine (last use around 1997), Marijuana/ Hashish (last use around 1997), Oxycodone (last use around 1997), Vicodin (last use around 1997) - Living Situation & Occupation Living situation: Reports: , with Spouse Occupation: Unemployed ED ROS GENERAL - Review of Systems Review Of Systems: ROS reveals no pertinent complaints other than HPI. ED EXAM,LOWER BACK PAIN/INJURY - Physical Exam Exam: See Below Exam Limited By: No Limitations General Appearance: Alert, WD/WN, No Apparent Distress Eye Exam: Bilateral Eye: Normal Inspection Ears: Normal External Exam, Hearing Grossly Normal Nose: Normal Inspection, No Blood Throat/Mouth: Normal Inspection, Normal Lips, Normal Voice, No Airway Compromise Head: Atraumatic, Normocephalic Neck: Normal Inspection, Full Range of Motion Respiratory/Chest: No Respiratory Distress, Lungs Clear, Normal Breath Sounds, No Accessory Muscle Use Cardiovascular: Normal Peripheral Pulses, Regular Rate, Rhythm, No Edema, No Gallop, No JVD, No Murmur, No Rub GI/Abdominal: Normal Bowel Sounds, Soft, Non-Tender, No Organomegaly, No Distention, No Abnormal Bruit, No Mass (Female) Exam: Deferred Back Exam: Other (No visible abnormality to the lumbar spine, sacral area, or buttocks, such as swelling, erythema, ecchymosis, or abrasion. The patient reports tenderness to palpation of the lumbar spinous processes, with essentially no tenderness to the lumbar paraspinous musculature. She also reports significant tenderness to palpation of the right buttock. Straight leg raise is negative on the left, but induces lower back pain without any radicular symptoms on the right at about 70. The patient is able to flex the spine to over 90 without any difficulty, and extend to approximately 40. She is able to tilt the spine bilaterally to about 40. She is able to twist the spine to approximately 30 bilaterally. Unilateral knee bend is normal bilaterally.) Extremities: Normal Inspection, Normal Range of Motion, Non-Tender, No Pedal Edema, Normal Capillary Refill Neurological: Alert, Normal Gait, No Motor/Sensory Deficits, Oriented x 3 Psychiatric: Normal Affect Skin Exam: Warm, Dry, Intact, Normal Color, No Rash Course - Vital Signs Last Recorded V/S: Last Vital Signs Temp 36.9 C 05/24/17 23:26 Pulse 82 05/24/17 23:26 Resp 18 05/24/17 23:26 BP 196/103 H 05/24/17 23:26 Pulse Ox 100 05/24/17 23:26 - Orders/Labs/Meds Meds: Medications Discontinued Medications Generic Name Dose Route Start Last Admin Trade Name Freq PRN Reason Stop Dose Admin Orphenadrine Citrate 100 mg 05/25/17 00:08 05/25/17 00:14 Norflex PO 05/25/17 00:09 100 mg ONETIME STA Administration - Re-Assessments/Exams Free Text/Narrative Re-Assessment/Exam: 05/25/17 00:08 The patient's physical exam is concerning for some factitious findings. She reports severe right lower back pain, not radicular pain, with straight leg raise on the right at about 70, yet she is able to flex to beyond 90 without any difficulty whatsoever. The remainder of her spinal range of motion is well within normal limits. Also concerning is her claim of tenderness over her lumbar spinous processes without a traumatic injury. Clinically, the patient is not suffering from actual sciatica or sciatic nerve inflammation, therefore I am not recommending prednisone. I do not suspect a herniated intervertebral disc, although I explained that the only way to be sure would be a MRI, not available from the ED. For tonight's purposes, I will treat the patient for muscle spasm with Norflex. I will have her follow-up with her PCP for further evaluation and treatment. 05/25/17 00:17 Notified by Amandeep DAVIS that when she went to give the patient the Norflex, the patient stated that she looked it up and stated that she is already on that medication, and that it is not working. The patient had not previously reported to us that she is on Norflex. Combined with the questionable physical exam, I'm concerned that there may be some drug-seeking behavior. As this problem has been going on for 9 days, it is clearly not an emergency. I therefore did not offer the patient any other treatments at this time. Departure - Departure Time of Disposition: 00:11 Disposition: Home, Self-Care 01 Condition: Good Clinical Impression: Muscle spasm of back - Discharge Information Prescriptions: Orphenadrine [Norflex] 1 tab PO Q12H PRN #14 tab.er PRN Reason: Muscle Spasm Instructions: Muscle Cramps and Spasms, [id number] Referrals: Zulma Wetzel PA [Primary Care Provider] - Forms: ED Department Discharge Additional Instructions: You were seen in the emergency room for approximately 9 days of lower back pain radiating to your right buttock, along with a sore right lower extremity. Based on your physical examination, you are not suffering from actual sciatica. You may have a muscle spasm causing your symptoms. You have been started on the muscle relaxant Norflex. Take one tablet every 12 hours, as prescribed. For continued symptoms, please follow-up with your PCP, Zulma Wetzel. If any other problems, please do not hesitate to return to the ER.
== END 2017-05-25 00:20 | disposition home or self-care (01) ==
LOC: JD.ED 23:14
DX: M62.830 Muscle spasm of back (principal); I10 Essential (primary) hypertension; E11.9 Type 2 diabetes mellitus without complications; F17.210 Nicotine dependence, cigarettes, uncomplicated; Z88.5 Allergy status to narcotic agent; Z79.899 Other long term (current) drug therapy; Z79.84 Long term (current) use of oral hypoglycemic drugs
CPT/HCPCS: 99283; A9270

== ENCOUNTER 2019-05-13 23:50 | Emergency (ER) | payer BC ==
[2019-05-14] MEDS ORDERED: Sodium Chloride 0.9% 1,000 ML IV ONE (00:29)
[2019-05-14] MEDS ORDERED: Insulin Regular, Human 100 Units/ML 3 ML Vial IV STA (00:29)
--- NOTE | 2019-05-14 00:41 | EDM.PDOC ---
ED HPI GENERAL MEDICAL PROBLEM - General Chief Complaint: Cardiovascular Problem Stated Complaint: [facility] Time Seen by Provider: 05/14/19 00:03 Source of Information: Reports: Patient History Limitations: Reports: No Limitations - History of Present Illness INITIAL COMMENTS - FREE TEXT/NARRATIVE: Mrs. Yang is a very pleasant 48-year-old woman with a past medical history significant for hypertension, untreated for the past 6 months, but started on lisinopril 20 mg daily this past 05/08/2019, and diabetes, treated with metformin. The patient now presents to the ED via EMS after developing lightheadedness, a headache, and burning in her chest around 22:30 this evening. She checked her blood pressure, finding it to be elevated, therefore she called EMS. The patient acknowledges that she does not ordinarily check her blood pressure or her blood glucose. She tells me that EMS found her blood glucose to be elevated at 392 en route. The patient states that she saw her Orthopedic Surgeon 12 days ago, and was diagnosed with not only a left Hurt cyst, but also advanced arthritis of the knee. She was prescribed a Medrol Dosepak, which she just finished today. The patient states that she has been feeling tired with a slight cough for the past 2 weeks. Initially her cough was productive of greenish sputum, but has since become nonproductive. She states that her daughter has been ill with influenza. Otherwise, however, the patient denies recent fever, chills, dyspnea , palpitations, nausea, vomiting, constipation, diarrhea, abdominal pain, urinary symptoms, recent weight gain or weight loss, recent bloody bowel movements or black bowel movements, recent joint aches, or rashes. Here in the ED, the patient's initial BP was found to be elevated at 209/106 with a HR of 102. She is afebrile, saturating 97% on room air. The patient's PCP is Carmita Sarmiento NP. She did not receive an influenza vaccine this season, and declined an offer to receive one here today. Chest Pain Score (Numeric/FACES): 4 - Related Data Allergies Allergy/AdvReac Type Severity Reaction Status Date / Time hydrocodone [From Vicodin] Allergy Hives Verified 05/13/19 23:54 oxycodone Allergy Cannot Verified 05/13/19 23:54 Remember Home Meds: Home Meds Lisinopril 20 mg PO DAILY 06/21/16 [History] Escitalopram [Lexapro] 10 mg PO DAILY 05/13/19 [History] metFORMIN HCl [Metformin HCl] 500 mg PO BID 05/13/19 [History] Past Medical History HEENT History: Reports: Impaired Vision Other HEENT History: wears glasses Cardiovascular History: Reports: Hypertension Gastrointestinal History: Reports: Hemorrhoids, Irritable Bowel Syndrome Musculoskeletal History: Reports: Osteoarthritis (knees) Psychiatric History: Reports: Addiction (Alcohol, cocaine, opioids), Anxiety, Depression Endocrine/Metabolic History: Reports: Diabetes, Type II Dermatologic History: Reports: Psoriasis - Infectious Disease History Infectious Disease History: Reports: Chicken Pox - Past Surgical History HEENT Surgical History: Reports: Adenoidectomy, Naso-Sinus Surgery (Rhinoplasty) , Oral Surgery (dental extractions), Tonsillectomy GI Surgical History: Reports: Cholecystectomy (1997) Female Surgical History: Reports: Tubal Ligation Musculoskeletal Surgical History: Reports: Arthroscopic Knee (right), Shoulder Surgery (left rotator cuff repair) Dermatological Surgical History: Reports: Other (See Below) (Several lipomas removed) Social & Family History - Family History Family Medical History: Noncontributory - Tobacco Use Smoking Status *Q: Current Every Day Smoker Years of Tobacco use: 33 Packs/Tins Daily: 1 Packs/Tins Daily Comment: Down from 2 ppd - Caffeine Use Caffeine Use: Reports: Soda, Tea - Alcohol Use Alcohol Use History: Yes Date/Time of Last Drink Comment: Alcoholic, in recovery x 1997 - Recreational Drug Use Recreational Drug Use: Yes Drug Use in Last 12 Months: No Recreational Drug Type: Reports: Cocaine (last used 1997), Marijuana/Hashish ( last smoked 1997), Other (see below) (Opioids - last abused 1997) - Living Situation & Occupation Living situation: Reports: , with Spouse 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 ED EXAM, GENERAL - Physical Exam Exam: See Below Exam Limited By: No Limitations General Appearance: Alert, WD/WN, No Apparent Distress, Anxious Eye Exam: Bilateral Eye: EOMI, Normal Inspection Ears: Normal External Exam, Normal Canal, Hearing Grossly Normal, Normal TMs Nose: Normal Inspection, Normal Mucosa, No Blood Throat/Mouth: Normal Inspection, Normal Lips, Normal Teeth, Normal Gums, Normal Oropharynx, Normal Voice, No Airway Compromise Head: Atraumatic, Normocephalic Neck: Normal Inspection, Supple, Non-Tender, Full Range of Motion. No: Lymphadenopathy (L), Lymphadenopathy (R) Respiratory/Chest: No Respiratory Distress, Lungs Clear, Normal Breath Sounds, No Accessory Muscle Use Cardiovascular: Normal Peripheral Pulses, Regular Rate, Rhythm, No Edema, No Gallop, No JVD, No Murmur, No Rub Peripheral Pulses: 4+: Radial (L), Radial (R) GI/Abdominal: Normal Bowel Sounds, Soft, Non-Tender, No Organomegaly, No Distention, No Abnormal Bruit, No Mass (Female) Exam: Deferred Rectal (Female) Exam: Deferred Back Exam: Normal Inspection, Full Range of Motion, NT Extremities: Normal Inspection, Normal Range of Motion, No Pedal Edema, Normal Capillary Refill Neurological: Alert, Oriented, CN II-XII Intact, Normal Cognition, No Motor/ Sensory Deficits Psychiatric: Anxious Skin Exam: Warm, Dry, Intact, Normal Color, No Rash EKG INTERPRETATION EKG Date: 05/14/19 Time: 00:36 Rhythm: NSR Rate (Beats/Min): 83 [place]: Normal P-Wave: Present QRS: Other (LVH by Shahzad voltage criterion, but not by Sokolow-Castaneda criterion or Romhilt-Keane point system) ST-T: Normal QT: Normal Comparison: NA - No Prior EKG Course - Vital Signs Last Recorded V/S: Last Vital Signs Temp 36.4 C 05/13/19 23:55 Pulse 81 05/14/19 06:00 Resp 16 05/14/19 06:00 BP 145/77 H 05/14/19 05:31 Pulse Ox 96 05/14/19 06:00 - Orders/Labs/Meds Orders: Active Orders 24 hr Category Date Time Status EKG Documentation Completion [RC] ASDIRECTED Care 05/14/19 00:08 Inactive EKG Documentation Completion [RC] ASDIRECTED Care 05/14/19 00:29 Active EKG 12 Lead [EK] Stat Ther 05/14/19 00:07 Stop Req EKG 12 Lead [EK] Stat Ther 05/14/19 00:29 Ordered Labs: Laboratory Tests 05/13/19 05/13/19 05/14/19 Range/Units 23:55 23:55 01:19 WBC 10.00 (3.98-10.04) K/mm3 RBC 5.00 (3.98-5.22) M/mm3 Hgb 14.9 (11.2-15.7) gm/dl Hct 41.3 (34.1-44.9) % MCV 82.6 (79.4-94.8) fl MCH 29.8 (25.6-32.2) pg MCHC 36.1 H (32.2-35.5) g/dl RDW Std Deviation 38.8 (36.4-46.3) fL Plt Count 301 (182-369) K/mm3 MPV 10.8 (9.4-12.3) fl Neutrophils % (Manual) 48 (40-60) % Band Neutrophils % 0 (0-10) % Lymphocytes % (Manual) 41 H (20-40) % Atypical Lymphs % 0 % Monocytes % (Manual) 7 (2-10) % Eosinophils % (Manual) 2 (0.7-5.8) % Basophils % (Manual) 2 H (0.1-1.2) Platelet Estimate Adequate RBC Morph Comment Normal Sodium 134 L (136-145) mEq/L Potassium 3.1 L (3.5-5.1) mEq/L Chloride 98 (98-107) mEq/L Carbon Dioxide 27 (21-32) mEq/L Anion Gap 12.1 (5-15) BUN 11 (7-18) mg/dL Creatinine 0.8 (0.55-1.02) mg/dL Est Cr Clr Drug Dosing 69.59 mL/min Estimated GFR (MDRD) > 60 (>60) mL/min BUN/Creatinine Ratio 13.8 L (14-18) Glucose 356 H (74-106) mg/dL POC Glucose 242 H (70-105) mg/dL Calcium 9.2 (8.5-10.1) mg/dL Magnesium 1.5 L (1.8-2.4) mg/dl Total Bilirubin 0.4 (0.2-1.0) mg/dL AST 11 L (15-37) U/L ALT 30 (14-59) U/L Alkaline Phosphatase 148 H (46-116) U/L Troponin I < 0.017 (0.00-0.056) ng/mL Total Protein 7.4 (6.4-8.2) g/dl Albumin 3.5 (3.4-5.0) g/dl Globulin 3.9 gm/dL Albumin/Globulin Ratio 0.9 L (1-2) Meds: Medications Discontinued Medications Generic Name Dose Route Start Last Admin Trade Name Freq PRN Reason Stop Dose Admin Acetaminophen 80 mg 05/14/19 01:24 05/14/19 05:25 Tylenol Childrens' Chewable PO 05/14/19 01:25 Not Given NOW ONE Acetaminophen 160 mg 05/14/19 01:26 05/14/19 05:25 Tylenol Childrens' Chewable PO 05/14/19 01:27 Not Given NOW ONE Acetaminophen 250 mg 05/14/19 01:57 05/14/19 01:59 Tylenol PO 05/14/19 01:58 250 mg ONETIME ONE Administration Aspirin 243 mg 05/14/19 01:26 05/14/19 01:56 Halfprin PO 05/14/19 01:27 243 mg ONETIME STA Administration Caffeine 200 mg 05/14/19 01:28 05/14/19 01:56 Caffeine PO 05/14/19 01:29 200 mg ONETIME STA Administration Clonidine HCl 0.1 mg 05/14/19 02:38 05/14/19 02:49 Catapres PO 05/14/19 02:39 0.1 mg ONETIME ONE Administration Sodium Chloride 1,000 mls @ 999 mls/hr 05/14/19 00:29 05/14/19 00:41 Normal Saline IV 05/14/19 01:29 999 mls/hr ONETIME ONE Administration Magnesium Sulfate 2 gm/ Premix 50 mls @ 50 mls/hr 05/14/19 01:16 05/14/19 01: 25 IV 05/14/19 02:15 50 mls/hr ONETIME ONE Administration Insulin Human Regular 5 unit 05/14/19 00:29 05/14/19 00:41 Humulin R IV 05/14/19 00:30 5 unit ONETIME STA Administration Lorazepam 1 mg 05/14/19 02:39 05/14/19 02:51 Ativan IVPUSH 05/14/19 02:40 1 mg ONETIME STA Administration Ondansetron HCl 4 mg 05/14/19 01:28 05/14/19 01:56 Zofran Odt PO 05/14/19 01:29 4 mg ONETIME ONE Administration Potassium Chloride 40 meq 05/14/19 02:16 05/14/19 02:51 Klor-Con M20 PO 05/14/19 02:17 40 meq ONETIME ONE Administration - Re-Assessments/Exams Free Text/Narrative Re-Assessment/Exam: 05/14/19 00:30 I suspect that the reason that the patient is not feeling well is because of the recent restarting of her lisinopril. As elevated as her BP is, it is likely less than it has been for the past 6 months, while her BP was untreated. Additionally, the patient's blood glucose was 392 per EMS likely because of the Medrol Dosepak that she has been taking for the past 12 days. This may have caused some intravascular depletion, additionally contributing to her not feeling well. Without treatment, the patient's BP has decreased to 196/93, well below criterion for acute treatment. For today's purposes, I have ordered some blood work that includes a CBC, CMP, magnesium level, and troponin, and we will check an ECG. In the meantime, the patient will be given a liter of IV fluid and 5 units of regular insulin. As the patient's neurologic examination is completely normal, and her BP is below 240/120, there is no indication for an emergency CT of her head. 05/14/19 01:17 The patient CBC is unremarkable. Her CMP is remarkable for a sodium of 134, which corrects to 137. Her potassium is depressed at 3.1, and her blood glucose is elevated at 356. Her alkaline phosphatase is slightly elevated at 148, with the remainder of her CMP being unremarkable. Her magnesium level is depressed at 1.5. Her troponin is undetectably low. Based on the above, I have ordered a 2 g Mg-rider. Once infused, the patient can be given some oral KCl. 05/14/19 01:29 I discussed the above with the patient. She still has a headache and would like to take something for it. She states that she ordinarily takes Excedrin Migraine, which contains acetaminophen 250 mg, aspirin 250 mg, and caffeine 65 mg. She states that that ordinarily works well. We do not carry Excedrin Migraine, however, I have ordered acetaminophen 240 mg, aspirin 243 mg, and caffeine 200 mg, along with Zofran 4 mg ODT. 05/14/19 02:17 The Mg-rider has finished infusing. I ordered 40 mEq oral KCl. 05/14/19 02:39 The patient's BP is still 201/99. She feels like she might be having a panic attack, driving her elevated blood pressure. She is not certain that she feels well enough to go home. I have therefore ordered Ativan 1 mg IVP and clonidine 0.1 mg po, which should help her to relax and get some sleep, and improve her blood pressure. We will keep her here in the ED until the morning. 05/14/19 04:46 The patient's BP is down to 147/76, with a HR of 87. 05/14/19 05:54 Notified by Annie DAVIS that the patient is feeling much better, and would like to go home. At present, her BP is 145/77, with a HR of 88. 05/14/19 06:04 The patient states that she got some rest, and is feeling much better. I will discharge her home. Departure - Departure Time of Disposition: 06:04 Disposition: Home, Self-Care 01 Clinical Impression: Left ventricular hypertrophy by electrocardiogram, Elevated blood pressure reading, Hypokalemia, Hypomagnesemia Hyperglycemia due to type 2 diabetes mellitus Qualifiers: Diabetes mellitus lobsterman insulin use: without long-term use Qualified Code(s ): E11.65 - Type 2 diabetes mellitus with hyperglycemia - Discharge Information *PRESCRIPTION DRUG MONITORING PROGRAM REVIEWED*: Not Applicable *COPY OF PRESCRIPTION DRUG MONITORING REPORT IN PATIENT [place]: Not Applicable Referrals: Carmita Sarmiento NP [Primary Care Provider] - Forms: ED Department Discharge Additional Instructions: You were seen in the emergency room for feeling lightheaded, having a headache, and burning in her chest, associated with elevated blood pressure. Work-up in the ER included blood work and an ECG. Your blood work found that your magnesium and potassium levels were low. Your blood glucose was elevated at 356. You were given IV magnesium replacement, followed by oral potassium replacement. You were given IV fluid, medicine for your headache, medicine for nausea, for anxiety, and blood pressure medicine. Your most recent blood pressure is 147/80. Going forward, we recommend that you continue to take your lisinopril once a day , but at bedtime. Follow-up with your PCP, Carmita Sarmiento NP, as needed. If any other problems, please do not hesitate to return to the ER. Sepsis Event Note - Evaluation Sepsis Screening Result: No Definite Risk - Focused Exam Vital Signs: Vital Signs Temp Pulse Pulse Resp BP BP Pulse Ox 05/14/19 06:00 81 16 96 05/14/19 05:31 85 13 145/77 H 97 05/14/19 05:30 80 14 98 05/14/19 05:01 79 19 137/70 98 05/14/19 05:00 81 14 98 05/14/19 04:31 88 19 147/76 H 98 05/14/19 04:30 89 17 98 05/14/19 04:01 97 33 H 168/92 H 100 05/14/19 04:00 94 15 98 05/14/19 03:31 100 20 164/98 H 98 05/14/19 03:30 93 13 98 05/14/19 03:17 89 16 97 05/14/19 02:49 201/99 H 05/14/19 02:33 96 200/94 H 05/13/19 23:55 36.4 C 102 H 16 209/106 H 97 Date Exam was Performed: 05/14/19 Time Exam was Performed: 06:04 - My Orders Last 24 Hours: My Active Orders 05/14/19 00:07 EKG 12 Lead [EK] Stat 05/14/19 00:08 EKG Documentation Completion [RC] ASDIRECTED 05/14/19 00:29 EKG Documentation Completion [RC] ASDIRECTED EKG 12 Lead [EK] Stat - Assessment/Plan Last 24 Hours: My Active Orders 05/14/19 00:07 EKG 12 Lead [EK] Stat 05/14/19 00:08 EKG Documentation Completion [RC] ASDIRECTED 05/14/19 00:29 EKG Documentation Completion [RC] ASDIRECTED EKG 12 Lead [EK] Stat
[2019-05-14] MEDS ORDERED: Magnesium Sulfate/Water 2 GM in Premix Bag 1 BAG IV ONE (01:16)
[2019-05-14] MEDS ORDERED: Aspirin 81 MG Tab.EC PO STA (01:26)
[2019-05-14] MEDS ORDERED: Caffeine 200 MG Tab PO STA (01:28)
[2019-05-14] MEDS ORDERED: Ondansetron 4 MG Tab.DIS PO ONE (01:28)
[2019-05-14] MEDS ORDERED: Acetaminophen 325 MG/10.15 ML ML PO ONE (01:57)
[2019-05-14] MEDS ORDERED: Potassium Chloride 20 MEQ Tab.ER PO ONE (02:16)
[2019-05-14] MEDS ORDERED: cloNIDine 0.1 MG Tab PO ONE (02:38)
[2019-05-14] MEDS ORDERED: LORazepam 2 MG/ML SDV IVPUSH STA (02:39)
[2019-05-14 06:02] VITALS: PULSE 81
[2019-05-14 06:12] VITALS: BP 141/81
== END 2019-05-14 06:16 | disposition home or self-care (01) ==
LOC: JD.ED 23:50 → SUPCPDRO 23:50 → JD.ED 05-14 06:16
DX: E11.65 Type 2 diabetes mellitus with hyperglycemia (principal); I51.7 Cardiomegaly; E87.6 Hypokalemia; E83.42 Hypomagnesemia; F32.9 Major depressive disorder, single episode, unspecified; F41.9 Anxiety disorder, unspecified; E11.9 Type 2 diabetes mellitus without complications; I10 Essential (primary) hypertension; F17.210 Nicotine dependence, cigarettes, uncomplicated; Z79.84 Long term (current) use of oral hypoglycemic drugs; Z88.5 Allergy status to narcotic agent; Z79.899 Other long term (current) drug therapy; Z79.4 Long term (current) use of insulin
CPT/HCPCS: 36415; 80053; 82962; 83735; 84484; 85007; 85027; 93005; 96361; 96365; 96375; 99285; A9270; J1815; J2060; J3475; J7030; 93010

== ENCOUNTER 2019-05-17 02:22 | Emergency (ER) | payer BC ==
[2019-05-17] MEDS ORDERED: Aspirin 81 MG Tab.Chew PO ONE (02:42)
[2019-05-17] MEDS ORDERED: Sodium Chloride 0.9% 10 ML Syringe FLUSH PRN (02:42)
[2019-05-17] MEDS ORDERED: Metoprolol Tartrate 50 MG Tab PO ONE (02:43)
[2019-05-17 02:58] VITALS: PULSE 101
--- NOTE | 2019-05-17 04:09 | EDM.PDOC ---
ED HPI GENERAL MEDICAL PROBLEM - General Chief Complaint: Cardiovascular Problem Stated Complaint: [facility] Time Seen by Provider: 05/17/19 02:36 Source of Information: Reports: Patient History Limitations: Reports: No Limitations - History of Present Illness INITIAL COMMENTS - FREE TEXT/NARRATIVE: The patient presents by [facility] for chest pain. This started this evening. The pain is in the center of her chest. Chambers has no shortness of breath. She has been under lots of stress lately. She has no fever chills or cough. She did feel like her heart was racing. She was here a few days ago for the same and her blood pressure was elevated. She was started on lisinopril over a week ago. Her BP is 205 systolic today. Onset: Gradual Duration: Hour(s): Location: Reports: Chest Quality: Reports: Pressure Severity: Moderate Improves with: Reports: None Worsens with: Reports: None Associated Symptoms: Reports: Chest Pain. Denies: Cough, Fever/Chills, Headaches, Nausea/Vomiting, Shortness of Breath Middle Mid-Anterior Chest Pain Score (Numeric/FACES): 4 - Related Data Allergies Allergy/AdvReac Type Severity Reaction Status Date / Time hydrocodone [From Vicodin] Allergy Hives Verified 05/17/19 02:36 oxycodone Allergy Cannot Verified 05/17/19 02:36 Remember Home Meds: Home Meds Lisinopril 20 mg PO DAILY 06/21/16 [History] Escitalopram [Lexapro] 10 mg PO DAILY 05/13/19 [History] metFORMIN HCl [Metformin HCl] 500 mg PO BID 05/13/19 [History] Metoprolol Succinate 25 mg PO DAILY #30 tab.er.24h 05/17/19 [Rx] Past Medical History HEENT History: Reports: Impaired Vision Other HEENT History: wears glasses Cardiovascular History: Reports: Hypertension Gastrointestinal History: Reports: Hemorrhoids, Irritable Bowel Syndrome 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 Musculoskeletal History: Reports: Osteoarthritis Neurological History: Reports: Migraines Psychiatric History: Reports: Addiction, Anxiety, Depression Endocrine/Metabolic History: Reports: Diabetes, Type II Dermatologic History: Reports: Psoriasis Other Dermatologic History: Lipoma to right breadt and to lower right and left back removed - Infectious Disease History Infectious Disease History: Reports: Chicken Pox - Past Surgical History HEENT Surgical History: Reports: Adenoidectomy, Naso-Sinus Surgery, Oral Surgery , Tonsillectomy GI Surgical History: Reports: Cholecystectomy Female Surgical History: Reports: Tubal Ligation Musculoskeletal Surgical History: Reports: Arthroscopic Knee, Shoulder Surgery Dermatological Surgical History: Reports: Other (See Below) Social & Family History - Family History Family Medical History: Noncontributory - Tobacco Use Smoking Status *Q: Current Every Day Smoker Years of Tobacco use: 20 Packs/Tins Daily: 0.5 - Caffeine Use Caffeine Use: Reports: Soda - Recreational Drug Use Recreational Drug Use: No - Living Situation & Occupation Living situation: Reports: , with Spouse 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 ROS GENERAL - Review of Systems Review Of Systems: See Below Constitutional: Reports: No Symptoms HEENT: Reports: No Symptoms Respiratory: Reports: No Symptoms Cardiovascular: Reports: Chest Pain, Palpitations Endocrine: Reports: No Symptoms GI/Abdominal: Reports: No Symptoms : Reports: No Symptoms Musculoskeletal: Reports: No Symptoms ED EXAM, GENERAL - Physical Exam Exam: See Below Exam Limited By: No Limitations General Appearance: Alert, No Apparent Distress Ears: Normal External Exam Nose: Normal Inspection Head: Atraumatic, Normocephalic Neck: Normal Inspection Respiratory/Chest: No Respiratory Distress, Lungs Clear, Normal Breath Sounds Cardiovascular: Regular Rate, Rhythm, No Edema, No Murmur GI/Abdominal: Soft, Non-Tender, No Organomegaly, No Mass Back Exam: Normal Inspection Extremities: Normal Inspection EKG INTERPRETATION EKG Date: 05/17/19 Time: 02:31 Rhythm: NSR Rate (Beats/Min): 95 [place]: Normal P-Wave: Present QRS: Normal ST-T: Normal QT: Normal Course - Vital Signs Last Recorded V/S: Last Vital Signs Temp 98.3 F 05/17/19 02:26 Pulse 101 H 05/17/19 02:57 Resp 18 05/17/19 02:46 BP 190/93 H 05/17/19 02:57 Pulse Ox 98 05/17/19 02:46 - Orders/Labs/Meds Orders: Active Orders 24 hr Category Date Time Status Cardiac Monitoring [RC] . DIRECTED Care 05/17/19 02:42 Active EKG Documentation Completion [RC] STAT Care 05/17/19 02:43 Active Peripheral IV Care [RC] . DIRECTED Care 05/17/19 02:43 Active Chest 1V Frontal [CR] Stat Exams 05/17/19 02:43 Taken Sodium Chloride 0.9% [Saline Flush] Med 05/17/19 02:42 Active 10 ml FLUSH ASDIRECTED PRN Peripheral IV Insertion Adult [OM.PC] Stat Oth 05/17/19 02:42 Ordered Medication Orders Sodium Chloride (Saline Flush) 10 ml FLUSH ASDIRECTED PRN PRN Reason: Keep Vein Open Labs: Laboratory Tests 05/17/19 05/17/19 Range/Units 02:58 02:58 WBC 10.20 H (3.98-10.04) K/mm3 RBC 5.07 (3.98-5.22) M/mm3 Hgb 14.9 (11.2-15.7) gm/dl Hct 41.8 (34.1-44.9) % MCV 82.4 (79.4-94.8) fl MCH 29.4 (25.6-32.2) pg MCHC 35.6 H (32.2-35.5) g/dl RDW Std Deviation 39.2 (36.4-46.3) fL Plt Count 316 (182-369) K/mm3 MPV 9.9 (9.4-12.3) fl Neut % (Auto) 64.5 (34.0-71.1) % Lymph % (Auto) 23.5 (19.3-51.7) % [place] % (Auto) 8.6 (4.7-12.5) % Eos % (Auto) 2.5 (0.7-5.8) Baso % (Auto) 0.7 (0.1-1.2) % Neut # (Auto) 6.58 H (1.56-6.13) K/mm3 Lymph # (Auto) 2.40 (1.18-3.74) K/mm3 [place] # (Auto) 0.88 H (0.24-0.36) K/mm3 Eos # (Auto) 0.25 (0.04-0.36) K/mm3 Baso # (Auto) 0.07 (0.01-0.08) K/mm3 Manual Slide Review Normal smear Sodium 137 (136-145) mEq/L Potassium 3.0 L (3.5-5.1) mEq/L Chloride 101 (98-107) mEq/L Carbon Dioxide 24 (21-32) mEq/L Anion Gap 15.0 (5-15) BUN 12 (7-18) mg/dL Creatinine 0.8 (0.55-1.02) mg/dL Est Cr Clr Drug Dosing 69.59 mL/min Estimated GFR (MDRD) > 60 (>60) mL/min BUN/Creatinine Ratio 15.0 (14-18) Glucose 347 H (74-106) mg/dL Calcium 8.9 (8.5-10.1) mg/dL Total Bilirubin 0.4 (0.2-1.0) mg/dL AST 9 L (15-37) U/L ALT 28 (14-59) U/L Alkaline Phosphatase 143 H (46-116) U/L Troponin I < 0.017 (0.00-0.056) ng/mL Total Protein 7.7 (6.4-8.2) g/dl Albumin 3.8 (3.4-5.0) g/dl Globulin 3.9 gm/dL Albumin/Globulin Ratio 1.0 (1-2) TSH 3rd Generation 2.363 (0.358-3.74) uIU/mL Meds: Medications Generic Name Dose Route Start Last Admin Trade Name Freq PRN Reason Stop Dose Admin Sodium Chloride 10 ml 05/17/19 02:42 Saline Flush FLUSH ASDIRECTED PRN Keep Vein Open Discontinued Medications Generic Name Dose Route Start Last Admin Trade Name Freq PRN Reason Stop Dose Admin Aspirin 324 mg 05/17/19 02:42 05/17/19 02:56 Aspirin PO 05/17/19 02:43 324 mg ONETIME ONE Administration Metoprolol Tartrate 50 mg 05/17/19 02:43 05/17/19 02:57 Lopressor PO 05/17/19 02:44 50 mg ONETIME ONE Administration - Re-Assessments/Exams Free Text/Narrative Re-Assessment/Exam: 05/17/19 04:04 I ordered an IV saline lock, EKG, CXR, labs, aspirin and metoprolol 50mg PO. Her EKG shows a NSR with no acute changes. Her WBC was slightly elevated at 10.2. Her K was low at 3. Her glucose was 347. She has been on steroids. Her alk phos is elevated at 143. Her troponin is negative. Her TSH is normal. Her CXR looks good. Her blood pressure looks good. I will started her on a low dose metoprolol. Departure - Departure Time of Disposition: 04:10 Disposition: Home, Self-Care 01 Condition: Good Clinical Impression: Atypical chest pain, Palpitations Hypertension Qualifiers: Hypertension type: essential hypertension Qualified Code(s): I10 - Essential ( primary) hypertension Prescriptions: Metoprolol Succinate 25 mg PO DAILY #30 tab.er.24h Referrals: PCP,None [Primary Care Provider] - Additional Instructions: Take your medication as prescribed but in addition take the metoprolol 25mg daily. Please return if you are worse and follow up with your provider within a week. Sepsis Event Note - Evaluation Sepsis Screening Result: No Definite Risk - Focused Exam Vital Signs: Vital Signs Temp Pulse Pulse Resp BP BP Pulse Ox 05/17/19 02:57 101 H 190/93 H 05/17/19 02:46 96 18 190/93 H 98 05/17/19 02:26 98.3 F 103 H 16 205/105 H 98 Date Exam was Performed: 05/17/19 Time Exam was Performed: 04:00 - My Orders Last 24 Hours: My Active Orders 05/17/19 02:42 Cardiac Monitoring [RC] . DIRECTED Sodium Chloride 0.9% [Saline Flush] 10 ml FLUSH ASDIRECTED PRN Peripheral IV Insertion Adult [OM.PC] Stat 05/17/19 02:43 EKG Documentation Completion [RC] STAT Peripheral IV Care [RC] . DIRECTED Chest 1V Frontal [CR] Stat - Assessment/Plan Last 24 Hours: My Active Orders 05/17/19 02:42 Cardiac Monitoring [RC] . DIRECTED Sodium Chloride 0.9% [Saline Flush] 10 ml FLUSH ASDIRECTED PRN Peripheral IV Insertion Adult [OM.PC] Stat 05/17/19 02:43 EKG Documentation Completion [RC] STAT Peripheral IV Care [RC] . DIRECTED Chest 1V Frontal [CR] Stat
[2019-05-17 04:19] VITALS: BP 161/85
--- NOTE | 2019-05-17 08:03 | CR ---
Chest: Portable view of the chest was obtained. Comparison: No prior chest imaging. Heart size and mediastinum are normal. Lungs are clear. Bony structures show prior left shoulder surgery. Endplate spurring is scattered within the spine. Surgical clips are noted from prior cholecystectomy. Impression: 1. Nothing acute is seen on portable chest x-ray. Diagnostic code #2 This report was dictated in MDT
== END 2019-05-17 04:22 | disposition home or self-care (01) ==
LOC: JD.ED 02:22
DX: I10 Essential (primary) hypertension (principal); R07.89 Other chest pain; F41.9 Anxiety disorder, unspecified; F32.9 Major depressive disorder, single episode, unspecified; Z79.899 Other long term (current) drug therapy; F17.210 Nicotine dependence, cigarettes, uncomplicated; Z79.84 Long term (current) use of oral hypoglycemic drugs; Z98.890 Other specified postprocedural states; Z90.49 Acquired absence of other specified parts of digestive tract; Z98.51 Tubal ligation status
CPT/HCPCS: 36415; 71045; 80053; 84443; 84484; 85025; 99285; A9270; 93010; 99284

== ENCOUNTER 2019-07-30 10:26 | Emergency (ER) | payer BC ==
[2019-07-30 10:37] VITALS: PULSE 74
[2019-07-30] MEDS ORDERED: Sodium Chloride 0.9% 10 ML Syringe FLUSH PRN ×2 (10:46→13:35)
[2019-07-30] MEDS ORDERED: Labetalol 100 MG/20 ML MDV IVPUSH ONE (10:48)
--- NOTE | 2019-07-30 11:03 | EDM.PDOC ---
ED HPI GENERAL MEDICAL PROBLEM - General Chief Complaint: Cardiovascular Problem Stated Complaint: HIGH BLOOD PRESSURE Time Seen by Provider: 07/30/19 10:34 Source of Information: Reports: Patient, Provider History Limitations: Reports: No Limitations - History of Present Illness INITIAL COMMENTS - FREE TEXT/NARRATIVE: The patient presents with hypertension, headache, tingling in her head and right upper abdominal pain. This has been going on for about a week. She has seen her provider Carmita Sarmiento and she cut her metformin in half and increased her metoprolol to 50mg daily and increased her lisinopril. She made this changes yesterday. She also has been having nausea and vomiting and some diarrhea. She is not keeping things down. She has no fever, chills, cough, congestion, runny nose, chest pain, or shortness of breath. She has no gallbladder. She has no numbness or weakness. Onset: Gradual Duration: Day(s): Location: Reports: Head Quality: Reports: Ache Severity: Moderate Improves with: Reports: None Worsens with: Reports: None Associated Symptoms: Reports: Headaches, Nausea/Vomiting. Denies: Chest Pain, Cough, Fever/Chills, Shortness of Breath Right Upper Abdomen Pain Score (Numeric/FACES): 5 - Related Data Allergies Allergy/AdvReac Type Severity Reaction Status Date / Time hydrocodone [From Vicodin] Allergy Hives Verified 05/17/19 02:36 oxycodone Allergy Cannot Verified 05/17/19 02:36 Remember Home Meds: Home Meds Lisinopril 20 mg PO DAILY 06/21/16 [History] Escitalopram [Lexapro] 10 mg PO DAILY 05/13/19 [History] metFORMIN HCl [Metformin HCl] 500 mg PO BID 05/13/19 [History] Metoprolol Succinate 25 mg PO DAILY #30 tab.er.24h 05/17/19 [Rx] LORazepam [Ativan] 1 mg PO TID PRN #15 tablet 07/30/19 [Rx] Metoprolol Succinate 100 mg PO DAILY #30 tab.er.24h 07/30/19 [Rx] Past Medical History HEENT History: Reports: Impaired Vision Other HEENT History: wears glasses Cardiovascular History: Reports: Hypertension Gastrointestinal History: Reports: Hemorrhoids, Irritable Bowel Syndrome 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 Musculoskeletal History: Reports: Osteoarthritis Neurological History: Reports: Migraines Psychiatric History: Reports: Addiction, Anxiety, Depression Endocrine/Metabolic History: Reports: Diabetes, Type II Dermatologic History: Reports: Psoriasis Other Dermatologic History: Lipoma to right breadt and to lower right and left back removed - Infectious Disease History Infectious Disease History: Reports: Chicken Pox - Past Surgical History HEENT Surgical History: Reports: Adenoidectomy, Naso-Sinus Surgery, Oral Surgery , Tonsillectomy GI Surgical History: Reports: Cholecystectomy Female Surgical History: Reports: Tubal Ligation Musculoskeletal Surgical History: Reports: Arthroscopic Knee, Shoulder Surgery Dermatological Surgical History: Reports: Other (See Below) Social & Family History - Family History Family Medical History: Noncontributory - Tobacco Use Smoking Status *Q: Current Every Day Smoker Years of Tobacco use: 20 Packs/Tins Daily: 0.5 - Caffeine Use Caffeine Use: Reports: Soda - Living Situation & Occupation Living situation: Reports: , with Spouse 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 Denies: Abdominal Pain : Reports: No Symptoms Musculoskeletal: Reports: No Symptoms Skin: Reports: No Symptoms Neurological: Reports: Headache ED EXAM, GENERAL - Physical Exam Exam: See Below Exam Limited By: No Limitations General Appearance: Alert, No Apparent Distress Ears: Normal External Exam Nose: Normal Inspection Head: Atraumatic, Normocephalic Neck: Normal Inspection Respiratory/Chest: No Respiratory Distress, Lungs Clear, Normal Breath Sounds Cardiovascular: Regular Rate, Rhythm, No Edema, No Murmur GI/Abdominal: Soft, Non-Tender, No Organomegaly Back Exam: Normal Inspection Extremities: Normal Inspection Course - Vital Signs Last Recorded V/S: Last Vital Signs Temp 97.3 F 07/30/19 10:33 Pulse 74 07/30/19 10:33 Resp 16 07/30/19 10:33 BP 164/77 H 07/30/19 11:45 Pulse Ox 100 07/30/19 10:33 - Orders/Labs/Meds Orders: Active Orders 24 hr Category Date Time Status Cardiac Monitoring [RC] . DIRECTED Care 07/30/19 10:46 Active EKG Documentation Completion [RC] STAT Care 07/30/19 10:47 Active Peripheral IV Care [RC] . DIRECTED Care 07/30/19 10:47 Active Sodium Chloride 0.9% [Saline Flush] Med 07/30/19 10:46 Active 10 ml FLUSH ASDIRECTED PRN Sodium Chloride 0.9% [Saline Flush] Med 07/30/19 13:35 Active 10 ml FLUSH ONETIME PRN Peripheral IV Insertion Adult [OM.PC] Stat Oth 07/30/19 10:46 Ordered Medication Orders Sodium Chloride (Saline Flush) 10 ml FLUSH ASDIRECTED PRN PRN Reason: Keep Vein Open Last Admin: 07/30/19 11:08 Dose: 10 ml Sodium Chloride (Saline Flush) 10 ml FLUSH ONETIME PRN PRN Reason: IV FLUSH Last Admin: 07/30/19 13:40 Dose: 10 ml Labs: Laboratory Tests 07/30/19 07/30/19 07/30/19 Range/Units 11:05 12:02 12:03 WBC 14.09 H (3.98-10.04) K/mm3 RBC 4.87 (3.98-5.22) M/mm3 Hgb 14.6 (11.2-15.7) gm/dl Hct 41.3 (34.1-44.9) % MCV 84.8 (79.4-94.8) fl MCH 30.0 (25.6-32.2) pg MCHC 35.4 (32.2-35.5) g/dl RDW Std Deviation 42.4 (36.4-46.3) fL Plt Count 319 (182-369) K/mm3 MPV 10.1 (9.4-12.3) fl Neut % (Auto) 49.5 (34.0-71.1) % Lymph % (Auto) 22.8 (19.3-51.7) % [place] % (Auto) 5.0 (4.7-12.5) % Eos % (Auto) 21.9 H (0.7-5.8) Baso % (Auto) 0.6 (0.1-1.2) % Neut # (Auto) 6.96 H (1.56-6.13) K/mm3 Lymph # (Auto) 3.21 (1.18-3.74) K/mm3 Coal # (Auto) 0.71 H (0.24-0.36) K/mm3 Eos # (Auto) 3.09 H (0.04-0.36) K/mm3 Baso # (Auto) 0.09 H (0.01-0.08) K/mm3 Manual Slide Review Abnormal smear Sodium 137 (136-145) mEq/L Potassium 4.5 (3.5-5.1) mEq/L Chloride 101 (98-107) mEq/L Carbon Dioxide 29 (21-32) mEq/L Anion Gap 11.5 (5-15) BUN 12 (7-18) mg/dL Creatinine 0.9 (0.55-1.02) mg/dL Est Cr Clr Drug Dosing 61.86 mL/min Estimated GFR (MDRD) > 60 (>60) mL/min BUN/Creatinine Ratio 13.3 L (14-18) Glucose 244 H (74-106) mg/dL Calcium 8.8 (8.5-10.1) mg/dL Total Bilirubin 0.4 (0.2-1.0) mg/dL AST 15 (15-37) U/L ALT 26 (14-59) U/L Alkaline Phosphatase 132 H (46-116) U/L Troponin I < 0.017 (0.00-0.056) ng/mL Total Protein 6.6 (6.4-8.2) g/dl Albumin 3.3 L (3.4-5.0) g/dl Globulin 3.3 gm/dL Albumin/Globulin Ratio 1.0 (1-2) Lipase 60 L (73-393) U/L Meds: Medications Generic Name Dose Route Start Last Admin Trade Name Freq PRN Reason Stop Dose Admin Sodium Chloride 10 ml 07/30/19 10:46 07/30/19 11:08 Saline Flush FLUSH 10 ml ASDIRECTED PRN Administration Keep Vein Open Sodium Chloride 10 ml 07/30/19 13:35 07/30/19 13:40 Saline Flush FLUSH 10 ml ONETIME PRN Administration IV FLUSH Discontinued Medications Generic Name Dose Route Start Last Admin Trade Name Freq PRN Reason Stop Dose Admin Diatrizoate Meglum/Diatrizoate Sod 120 ml 07/30/19 13:35 07/30/19 13:40 Gastrografin 37% PO 07/30/19 13:36 90 ml ONETIME ONE Administration Iopamidol 100 ml 07/30/19 13:35 07/30/19 13:40 Isovue-300 (61%) IVPUSH 07/30/19 13:36 100 ml ONETIME ONE Administration Labetalol HCl 20 mg 07/30/19 10:48 Normodyne IVPUSH 07/30/19 10:49 ONETIME ONE Protocol Ondansetron HCl 4 mg 07/30/19 12:13 07/30/19 12:18 Zofran IVPUSH 07/30/19 12:14 4 mg ONETIME ONE Administration - Re-Assessments/Exams Free Text/Narrative Re-Assessment/Exam: 07/30/19 11:03 I ordered an IV saline lock, EKG, CT of head, labs and labetolol 20mg IV. 07/30/19 13:47 Her EKG shows a NSR with no acute changes. The CT of her head looks good and her CXR looks good. Her WBC is elevated at 14.09. Her glucose is elevated at 244. Her alk phos is elevated at 132. Her troponin is negative. Her lipase is low. I have ordered a CT of her abdomen and pelvis. 07/30/19 14:[address] of her abdomen and pelvis shows mild increased stool throughout the colon. Other findings believed to be incidental. Nothing acute is appreciated. I will up her metoprolol succinate to 100mg. She is under lots of stress. I will give her a few ativan for symptoms until we get things under control. Departure - Departure Time of Disposition: 14:35 Disposition: Home, Self-Care 01 Condition: Good Clinical Impression: Atypical chest pain Hypertension Qualifiers: Hypertension type: essential hypertension Qualified Code(s): I10 - Essential ( primary) hypertension Abdominal pain Qualifiers: Abdominal location: upper abdomen, unspecified Qualified Code(s): R10.10 - Upper abdominal pain, unspecified Prescriptions: LORazepam [Ativan] 1 mg PO TID PRN #15 tablet PRN Reason: Anxiety Metoprolol Succinate 100 mg PO DAILY #30 tab.er.24h Referrals: Carmita Sarmiento SQL SERVER ARCHITECT [Primary Care Provider] - 1 Week Forms: ED Department Discharge, ED Return to Work/School Form Additional Instructions: Take the metoprolol 10mg daily. Take the rest of your meds as prescribed. Take the ativan as needed for anxiety. Please return if you are worse. Sepsis Event Note - Evaluation Sepsis Screening Result: No Definite Risk - Focused Exam Vital Signs: Vital Signs Temp Pulse Resp BP BP Pulse Ox 07/30/19 11:45 164/77 H 07/30/19 11:30 175/85 H 07/30/19 11:15 170/83 H 07/30/19 10:33 97.3 F 74 16 203/86 H 100 Date Exam was Performed: 07/30/19 Time Exam was Performed: 14:30 - My Orders Last 24 Hours: My Active Orders 07/30/19 10:46 Cardiac Monitoring [RC] . DIRECTED Sodium Chloride 0.9% [Saline Flush] 10 ml FLUSH ASDIRECTED PRN Peripheral IV Insertion Adult [OM.PC] Stat 07/30/19 10:47 EKG Documentation Completion [RC] STAT Peripheral IV Care [RC] . DIRECTED 07/30/19 13:35 Sodium Chloride 0.9% [Saline Flush] 10 ml FLUSH ONETIME PRN - Assessment/Plan Last 24 Hours: My Active Orders 07/30/19 10:46 Cardiac Monitoring [RC] . DIRECTED Sodium Chloride 0.9% [Saline Flush] 10 ml FLUSH ASDIRECTED PRN Peripheral IV Insertion Adult [OM.PC] Stat 07/30/19 10:47 EKG Documentation Completion [RC] STAT Peripheral IV Care [RC] . DIRECTED 07/30/19 13:35 Sodium Chloride 0.9% [Saline Flush] 10 ml FLUSH ONETIME PRN
[2019-07-30 11:54] VITALS: BP 164/77
--- NOTE | 2019-07-30 11:59 | CT ---
Head CT Technique: Multiple axial sections through the brain were obtained. Intravenous contrast was not utilized. Comparison: No prior intracranial imaging. Findings: Ventricles along with basal cisterns and sulci are convexities are within normal limits for the patient's age. No abnormal parenchymal densities are seen. No evidence of intracranial hemorrhage. No midline shift or mass effect is seen. Bone window settings were reviewed. Visualized mastoid sinuses and visualized paranasal sinuses show nothing acute. Impression: 1. Nothing acute is appreciated on noncontrast head CT exam. Diagnostic code #1 This report was dictated in MDT
[2019-07-30] MEDS ORDERED: Ondansetron 4 MG/2 ML SDV IVPUSH ONE (12:13)
--- NOTE | 2019-07-30 13:04 | CR ---
Chest: 2 views of the chest were obtained. Comparison: Prior chest x-ray of 05/17/19. Heart size and mediastinum are normal. Lungs are clear. Bony structures shows mild endplate spurring within the spine. Impression: 1. Nothing acute is seen on 2 view chest x-ray. Diagnostic code #2 This report was dictated in MDT
[2019-07-30] MEDS ORDERED: Diatrizoate Meglumine/Diatrizoate Sodium 37% 120 ML Bottle PO ONE (13:35)
[2019-07-30] MEDS ORDERED: Iopamidol 612 MG/ML 100 ML Bottle IVPUSH ONE (13:35)
--- NOTE | 2019-07-30 14:17 | CT ---
CT abdomen and pelvis Technique: Multiple axial sections were obtained from above the dome of the diaphragm inferiorly through the pubic symphysis. Intravenous and oral contrast was utilized. Delayed images were obtained through the bladder. Comparison: Prior CT abdomen and pelvis study of 06/22/16 is available. Findings: Visualized lung bases show nothing acute. Liver contains no focal parenchymal abnormality. Spleen appears within normal limits. Adrenal glands show no nodule. Pancreas is within normal limits. Kidneys show symmetric contrast enhancement without hydronephrosis or mass. Surgical clips are seen from prior cholecystectomy. Aorta shows no aneurysm. No retroperitoneal adenopathy or mesenteric abnormalities are seen. No pelvic mass or adenopathy is seen. Appendix is seen and is normal in size. No pelvic mass or adenopathy is seen. Diverticuli are seen within the sigmoid colon and within portions of the descending colon. No free fluid or inflammatory change is seen within the abdomen or within the pelvis. Delayed images shows contrast within the bladder. Bone window settings were reviewed which shows mild scattered degenerative change within the spine. No acute osseous finding is seen. Mild increased stool seen throughout colon. Impression: 1. Mild increased stool throughout the colon. 2. Other findings believed to be incidental as noted above. Nothing acute is appreciated. Diagnostic code #2 Study was dictated in MDT
== END 2019-07-30 14:50 | disposition home or self-care (01) ==
LOC: JD.ED 10:26
DX: I10 Essential (primary) hypertension (principal); R07.89 Other chest pain; R10.11 Right upper quadrant pain; G43.909 Migraine, unspecified, not intractable, without status migrainosus; F41.9 Anxiety disorder, unspecified; F32.9 Major depressive disorder, single episode, unspecified; E11.9 Type 2 diabetes mellitus without complications; F17.210 Nicotine dependence, cigarettes, uncomplicated; Z88.8 Allergy status to other drugs, medicaments and biological substances; Z79.84 Long term (current) use of oral hypoglycemic drugs; Z79.899 Other long term (current) drug therapy
CPT/HCPCS: 36415; 70450; 71046; 74177; 80053; 83690; 84484; 85025; 93005; 96374; 99284; J2405; Q9963; Q9967; J3490

== ENCOUNTER 2019-09-03 06:59 | Day surgery (SDC) | payer BC ==
[~2019-09-03 06:59] MED LIST: Lactated Ringers 1,000 ML IV SCH; Lidocaine 1%/Sod Bicarbonate in NS 8.4% 1 ML Syringe IDERM PRN; Sodium Chloride 0.9% 10 ML Syringe FLUSH PRN
--- NOTE | 2019-09-03 07:39 | PCM.PREANE ---
Preanesthetic Assessment - Anesthesia/Transfusion/Family Hx Anesthesia History: Prior Anesthesia Without Reaction Transfusion History: No Prior Transfusion(s) - Review of Systems General: No Symptoms Pulmonary: No Symptoms Cardiovascular: No Symptoms Gastrointestinal: Abdominal Pain, Nausea Neurological: No Symptoms Other: Reports: Anxiety - Physical Assessment NPO Status Date: 09/02/19 NPO Status Time: 21:00 Vital Signs: Last Vital Signs Temp 98.4 F 09/03/19 07:00 Pulse 74 09/03/19 07:00 Resp 16 09/03/19 07:00 BP 146/78 H 09/03/19 07:00 Pulse Ox 96 09/03/19 07:00 ASA Class: 3 Mental Status: Alert & Oriented x3 Airway Class: Mallampati = 3 Dentition: Reports: Missing Tooth/Teeth, Caries Thyro-Mental Finger Breadths: 3 Mouth Opening Finger Breadths: 3 ROM/Head Extension: Full Lungs: Clear to Auscultation, Normal Respiratory Effort Cardiovascular: Regular Rate, Regular Rhythm - Allergies Allergies/Adverse Reactions: Allergies Allergy/AdvReac Type Severity Reaction Status Date / Time hydrocodone [From Vicodin] Allergy Hives Verified 09/02/19 16:27 - Anesthesia Plan Beta Maren: Metoprolol Med Last Dose Date: 09/02/19 Med Last Dose Time: 20:00 - Acknowledgements Anesthesia Type Planned: MAC Pt an Appropriate Candidate for the Planned Anesthesia: Yes Alternatives and Risks of Anesthesia Discussed w Pt/Guardian: Yes Pt/Guardian Understands and Agrees with Anesthesia Plan: Yes PreAnesthesia Questionnaire HEENT History: Reports: Allergic Rhinitis, Impaired Vision Other HEENT History: wears glasses Cardiovascular History: Reports: Hypertension Respiratory History: Reports: Asthma (in youth, had no attacks in last 20 yrs), Other (See Below) (snores, has deviated septum) Gastrointestinal History: Reports: Hemorrhoids, Irritable Bowel Syndrome, 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 OB/BYN History: tubes tied Musculoskeletal History: Reports: Back Pain, Chronic, Osteoarthritis, Other (See Below) Other Musculoskeletal History: shoulder pain, neck pain, resteless leg syndome Neurological History: Reports: Migraines Psychiatric History: Reports: Addiction, Anxiety, Depression Endocrine/Metabolic History: Reports: Diabetes, Type II Hematologic History: Reports: None Immunologic History: Reports: None Oncologic (Cancer) History: Reports: None Dermatologic History: Reports: Psoriasis Other Dermatologic History: Lipoma to right breadt and to lower right and left back removed, excessive sweating - Infectious Disease History Infectious Disease History: Reports: None - Past Surgical History Head Surgeries/Procedures: Reports: None HEENT Surgical History: Reports: Adenoidectomy, Naso-Sinus Surgery, Oral Surgery, Tonsillectomy Other HEENT Surgeries/Procedures: Oral surgery Cardiovascular Surgical History: Reports: None Respiratory Surgical History: Reports: None GI Surgical History: Reports: Cholecystectomy, EGD Female Surgical History: Reports: None, Tubal Ligation Male Surgical History: Reports: None Endocrine Surgical History: Reports: None Neurological Surgical History: Reports: None Musculoskeletal Surgical History: Reports: Arthroscopic Knee, Shoulder Surgery Other Musculoskeletal Surgeries/Procedures:: left rotator cuff surgery; right knee surgery Oncologic Surgical History: Reports: None Dermatological Surgical History: Reports: Other (See Below) - SUBSTANCE USE Smoking Status *Q: Current Every Day Smoker Recreational Drug Use History: No - HOME MEDS Home Medications: Home Meds Dapagliflozin Propanediol [Farxiga] 5 mg PO QAM 09/02/19 [History] Escitalopram [Lexapro] 20 mg PO DAILY 09/02/19 [History] Meloxicam 7.5 mg PO BID PRN 09/02/19 [History] Metoprolol Succinate 100 mg PO DAILY 09/02/19 [History] Omeprazole 20 mg PO QAM 09/02/19 [History] Ozempic 0.5 mg SQ MO 09/02/19 [History] Rosuvastatin [Crestor] 10 mg PO DAILY 09/02/19 [History] busPIRone [Buspar] 10 mg PO BID 09/02/19 [History] hydrOXYzine HCL [hydrOXYzine] 25 - 50 mg PO TID PRN 09/02/19 [History] lisinopriL [Lisinopril] 30 mg PO DAILY 09/02/19 [History] metFORMIN HCl [Metformin HCl ER] 500 mg PO BID 09/02/19 [History] - CURRENT (IN HOUSE) MEDS Current Meds: Current Medications Lactated Ringer's (Ringers, Lactated) 1,000 mls @ 125 mls/hr IV ASDIRECTED KERRI Stop: 09/03/19 23:00 Lidocaine/Sodium Bicarbonate (Buffered Lidocaine 1% In Ns 8.4%) 0.25 ml IDERM ONETIME PRN PRN Reason: Prior to IV Start Stop: 09/03/19 18:00 Sodium Chloride (Saline Flush) 10 ml FLUSH ASDIRECTED PRN PRN Reason: Keep Vein Open Stop: 09/03/19 18:00
[2019-09-03] MEDS ORDERED: Propofol 200 MG/20 ML SDV ONE (07:46)
[2019-09-03] MEDS ORDERED: fentaNYL 100 MCG/2 ML SDV ONE (07:47)
[2019-09-03] MEDS ORDERED: Lidocaine 1% 4 ML ONE (07:50)
[2019-09-03] MEDS ORDERED: Midazolam 1 MG/ML 2 ML SDV ONE (07:57)
--- NOTE | 2019-09-03 09:01 | PCM48HPAN ---
Post Anesthesia Note - EVALUATION WITHIN 48HRS OF ANESTHETIC Vital Signs in Normal Range: Yes Patient Participated in Evaluation: Yes Respiratory Function Stable: Yes Airway Patent: Yes Cardiovascular Function Stable: Yes Hydration Status Stable: Yes Pain Control Satisfactory: Yes Nausea and Vomiting Control Satisfactory: Yes Mental Status Recovered: Yes Vital Signs: Last Vital Signs Temp 97.8 F 09/03/19 08:54 Pulse 73 09/03/19 08:54 Resp 18 09/03/19 08:54 BP 127/73 09/03/19 08:54 Pulse Ox 97 09/03/19 08:54
[2019-09-03 09:37] VITALS: BP 133/72; PULSE 67
--- NOTE | 2019-09-03 11:31 | PCM.PRNOTE ---
- Free Text/Narrative Note: Date: 09/03/2019 Procedure: diagnostic EGD, screening colonoscopy Indications: history of peptic ulcer disease with Upper GI discomfort and pain Endoscopist: Gulshan Monreal MD Findings: large volume of prep still in stomach. upper endoscopic findings were essentially normal otherwise, sample biopsies of the duodenum, antrum, and distal esophagus were obtained. Colonoscopy prep was poor, but the cecum was reached and one polyp was identified and removed in the ascending colon. Diverticular disease of the sigmoid colon. Detailed Report: The patient was taken to the endoscopy suite and placed in left lateral decubitus position. Time out was performed and monitored anesthesia care was initiated. The endoscope was inserted orally and advanced with ease into the stomach. There was a significant amount of prep still in the stomach, which was suctioned. The duodenum was intubated and mucosa appeared normal. A sample biopsy was taken with forceps. The stomach also appeared normal with no sign of ulceration. A sample biopsy of the antrum was obtained. On retroflexion, no significant hiatal hernia was appreciated. The esophagus appeared normal; a sample of distal esophageal mucosa was obtained. Air was suctioned from the stomach and the scope was withdrawn. Next, colonoscopy was performed. External hemorrhoidal skin tags were noted, with low sphincter tone. Digital rectal exam was unremarkable. The lubricated colonoscope was then inserted and advanced all the way to the cecum. Prep was poor, with adherent particulate matter a muddy brown fluid throughout. However, visualization was good enough to permit passage to the cecum, and the appendiceal orifice was visualized. On slow withdrawal of the scope, mucosal surfaces were carefully inspected. A single pedunculated polyp was identified in the ascending colon and hot snare polypectomy was performed. Though visualization through the rest of the colon was unsatisfactory, no additional polyps were seen. There was diverticular disease of the sigmoid colon. No hemorrhoidal disease appreciated on retroflexion of the scope within the rectum. The patient tolerated the procedure well. Plan for gastric emptying study and re-scope within one year. Gulshan Monreal MD General Surgery
== END 2019-09-03 10:08 | disposition home or self-care (01) ==
LOC: JD.SDS 06:59
PROVIDERS: ATTEND Surgery
DX: Z12.11 Encounter for screening for malignant neoplasm of colon (principal); D12.2 Benign neoplasm of ascending colon; K29.50 Unspecified chronic gastritis without bleeding; K57.30 Diverticulosis of large intestine without perforation or abscess without bleeding; K22.8 Other specified diseases of esophagus; K64.4 Residual hemorrhoidal skin tags; J45.909 Unspecified asthma, uncomplicated; E11.9 Type 2 diabetes mellitus without complications; I10 Essential (primary) hypertension; F41.8 Other specified anxiety disorders; E78.5 Hyperlipidemia, unspecified; F17.210 Nicotine dependence, cigarettes, uncomplicated; Z87.11 Personal history of peptic ulcer disease; Z90.49 Acquired absence of other specified parts of digestive tract; Z88.6 Allergy status to analgesic agent; Z79.899 Other long term (current) drug therapy; Z79.84 Long term (current) use of oral hypoglycemic drugs
CPT/HCPCS: 43239; 45385; J2001; J2250; J2704; J3010; J7120

== ENCOUNTER 2020-10-12 15:56 | Emergency (ER) | payer BC ==
[2020-10-12 16:32] VITALS: BP 189/87; PULSE 75
--- NOTE | 2020-10-12 17:49 | US ---
Left lower extremity deep venous ultrasound: Duplex and color Doppler evaluation was obtained of the left common femoral, proximal greater saphenous, superficial femoral, popliteal, posterior tibial and peroneal veins. Right common femoral vein was also evaluated. Comparison: No prior venous imaging is available. Findings: Normal phasic flow, augmentation and compression are seen. Popliteal cyst is noted measuring about 2.5 cm. Impression: 1. Popliteal cyst. 2. No findings of deep venous thrombosis within the left lower extremity or within the right common femoral vein. Diagnostic code #2
[2020-10-12] MEDS ORDERED: HYDROmorphone 0.5 MG/0.5 ML Syringe IM ONE (17:51)
--- NOTE | 2020-10-12 18:38 | EDM.PDOC ---
ED HPI GENERAL MEDICAL PROBLEM - General Chief Complaint: Lower Extremity Injury/Pain Stated Complaint: LEFT KNEE PAIN Time Seen by Provider: 10/12/20 16:27 Source of Information: Reports: Patient History Limitations: Reports: No Limitations - History of Present Illness INITIAL COMMENTS - FREE TEXT/NARRATIVE: 50-year-old female presents the emergency department today with complaints of pain to her popliteal space. Patient states she developed pain that started yesterday and has progressively gotten worse. She states that today she took naproxen and a few hours later took ibuprofen. She states this has not touched her pain. She states she does have a history of popliteal cyst in the past and this feels similar to that incident. She is to have knee surgery with the rthopedic surgeon, Dr. Castaneda, on the of this month. She states she did call his clinic and he referred her to the emergency department. Patient has otherwise been well. She denies any fever, chills, nausea, vomiting, diarrhea, abdominal pain, cough sore throat or shortness of breath. She has not noted any swelling or redness to her left lower extremity. Treatments REPORT CLERK: Reports: NSAIDS, Other (see below) Left Knee Pain Score (Numeric/FACES): 10 - Related Data Allergies Allergy/AdvReac Type Severity Reaction Status Date / Time hydrocodone [From Vicodin] Allergy Hives Verified 10/12/20 16:32 Home Meds: Home Meds Dapagliflozin Propanediol [Farxiga] 5 mg PO QAM 09/02/19 [History] Escitalopram [Lexapro] 20 mg PO DAILY 09/02/19 [History] Metoprolol Succinate 100 mg PO DAILY 09/02/19 [History] Ozempic 1 mg SQ MO 09/02/19 [History] Rosuvastatin [Crestor] 10 mg PO DAILY 09/02/19 [History] hydrOXYzine HCL [hydrOXYzine] 25 - 50 mg PO TID PRN 09/02/19 [History] lisinopriL [Lisinopril] 30 mg PO DAILY 09/02/19 [History] Famotidine 20 mg PO DAILY 10/12/20 [History] Past Medical History HEENT History: Reports: Impaired Vision Other HEENT History: wears glasses Cardiovascular History: Reports: Hypertension Respiratory History: Reports: Asthma Gastrointestinal History: Reports: Hemorrhoids, Irritable Bowel Syndrome Genitourinary History: Reports: None 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 Musculoskeletal History: Reports: Osteoarthritis Other Musculoskeletal History: shoulder pain, neck pain, resteless leg syndome Neurological History: Reports: Migraines Psychiatric History: Reports: Addiction, Anxiety, Depression Endocrine/Metabolic History: Reports: Diabetes, Type II, Obesity/BMI 30+ Hematologic History: Reports: None Immunologic History: Reports: None Oncologic (Cancer) History: Reports: None Dermatologic History: Reports: Psoriasis Other Dermatologic History: Lipoma to right breadt and to lower right and left back removed - Infectious Disease History Infectious Disease History: Reports: Chicken Pox - Past Surgical History HEENT Surgical History: Reports: Adenoidectomy, Naso-Sinus Surgery, Oral Surgery, Tonsillectomy Other HEENT Surgeries/Procedures: Oral surgery GI Surgical History: Reports: Cholecystectomy Female Surgical History: Reports: Tubal Ligation Musculoskeletal Surgical History: Reports: Arthroscopic Knee, Shoulder Surgery Other Musculoskeletal Surgeries/Procedures:: left rotator cuff surgery; right knee surgery Dermatological Surgical History: Reports: Other (See Below) Social & Family History - Family History Family Medical History: No Pertinent Family History - Tobacco Use Tobacco Use Status *Q: Current Every Day Tobacco User Years of Tobacco use: 25 Packs/Tins Daily: 0.5 - Caffeine Use Caffeine Use: Reports: Soda - Recreational Drug Use Recreational Drug Use: No - Living Situation & Occupation Living situation: Reports: , with Spouse 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 ED EXAM, GENERAL - Physical Exam Exam: See Below Exam Limited By: No Limitations General Appearance: Alert, WD/WN, Mild Distress (Due to pain in left popliteal space) Ears: Normal External Exam, Hearing Grossly Normal Nose: Normal Inspection Throat/Mouth: Normal Inspection, Normal Lips, Normal Voice, No Airway Compromise Head: Atraumatic Neck: Normal Inspection, Supple Respiratory/Chest: No Respiratory Distress, No Accessory Muscle Use Cardiovascular: Normal Peripheral Pulses, Regular Rate, Rhythm GI/Abdominal: No Distention (Female) Exam: Deferred Rectal (Female) Exam: Deferred Back Exam: Normal Inspection Extremities: Normal Inspection, Normal Range of Motion, No Pedal Edema, Normal Capillary Refill. No: Non-Tender (Tenderness noted to left popliteal space with a marble sized nodule palpated) Neurological: Alert, Oriented, Normal Cognition Psychiatric: Normal Affect, Normal Mood Skin Exam: Warm, Dry, Intact, Normal Color, No Rash Lymphatic: No Adenopathy Course - Vital Signs Text/Narrative:: As stated above patient with painful nodule noted to the left popliteal space. She believes it to be a Hurt's cyst as she has had these in the past. States that today the pain became so severe that she took naproxen and a few hours later took ibuprofen and this still did not touch the pain. She has otherwise been well. Upon assessment there is a marble sized nodule noted to the left popliteal space. This is very painful with palpation. I have ordered for the patient to receive 1/2 mg of Dilaudid IM and we will obtain an ultrasound of the left lower extremity. Last Recorded V/S: Last Vital Signs Temp 97.4 F 10/12/20 16:26 Pulse 75 10/12/20 16:26 Resp 18 10/12/20 16:26 BP 189/87 H 10/12/20 16:26 Pulse Ox 98 10/12/20 16:26 - Orders/Labs/Meds Meds: Medications Discontinued Medications Generic Name Dose Route Start Last Admin Trade Name Freq PRN Reason Stop Dose Admin Hydromorphone HCl 0.5 mg 10/12/20 17:51 10/12/20 17:58 Hydromorphone 0.5 Mg/0.5 Ml Syringe IM 10/12/20 17:52 0.5 mg ONETIME ONE Administration - Re-Assessments/Exams Free Text/Narrative Re-Assessment/Exam: 10/12/20 18:35 Radiologist impression left lower extremity deep venous ultrasound: Normal phasic flow, augmentation and compression are seen. Popliteal cyst is noted measuring about 2-1/2 cm. No findings of deep venous thrombosis within the left lower extremity or within the right common femoral vein. Patient reports that the Dilaudid is taking effect and her pain has decreased significantly. She will be discharged to home with recommendations that for the next 48 hours to take ibuprofen 600 mg alternating with Tylenol 650 mg. She has been informed to use ice 30 minutes at a time every 3 hours while awake. Do not use a heating pad. If she is still having significant discomfort in about a week she may need to follow-up with Dr. Castaneda to have the cyst reevaluated. Departure - Departure Time of Disposition: 18:38 Disposition: Home, Self-Care 01 Condition: Good Clinical Impression: Popliteal cyst Qualifiers: Laterality: left Qualified Code(s): M71.22 - Synovial cyst of popliteal space [Hurt], left knee - Discharge Information Referrals: Carmita Sarmiento, EXTENSION ASSOCIATE [Primary Care Provider] - Forms: ED Department Discharge, ED Return to Work/School Form Additional Instructions: You were seen in the emergency department today with complaints of pain behind her left knee. Ultrasound of the left leg was completed and this did show a 2.5 cm popliteal cyst. There were no findings of a blood clot in your left leg. Treatment for this is anti-inflammatories. Recommend that you take Tylenol 650 mg alternating with ibuprofen 600 mg every 4 hours for the next 48 hours and then as needed. Do not use heat to the area as this causes more inflammation and pain in the long run. Recommend using ice 30 minutes at a time every 3 hours while awake. If you are still having discomfort in about a week recommend that you follow-up with Dr. Castaneda for further evaluation. Should your condition worsen or change, do not hesitate returning to the emergency department. Sepsis Event Note (ED) - Evaluation Sepsis Screening Result: No Definite Risk - Focused Exam Vital Signs: Vital Signs Temp Pulse Resp BP Pulse Ox 10/12/20 16:26 97.4 F 75 18 189/87 H 98
== END 2020-10-12 19:02 | disposition home or self-care (01) ==
LOC: JD.ED 15:56
DX: M71.22 Synovial cyst of popliteal space [Baker], left knee (principal); I10 Essential (primary) hypertension; E11.9 Type 2 diabetes mellitus without complications; E66.9 Obesity, unspecified; Z68.30 Body mass index [BMI] 30.0-30.9, adult; Z79.899 Other long term (current) drug therapy; Z88.5 Allergy status to narcotic agent; Z72.0 Tobacco use
CPT/HCPCS: 93971; 96372; 99283; J1170

== ENCOUNTER 2020-11-19 01:53 | Emergency (ER) | payer BC ==
--- NOTE | 2020-11-19 02:09 | EDM.PDOC ---
ED HPI GENERAL MEDICAL PROBLEM - General Chief Complaint: Lower Extremity Injury/Pain Stated Complaint: LEFT KNEE PAIN Time Seen by Provider: 11/19/20 02:05 Source of Information: Reports: Patient History Limitations: Reports: No Limitations - History of Present Illness INITIAL COMMENTS - FREE TEXT/NARRATIVE: Patient is a 50-year-old female who is complaining of having left knee pain which started several days ago and is gotten worse. Patient is scheduled for knee replacement this January and does not want take any medications that may delay her surgery. She states she has been having similar pain in the past but tonight it is severe and she is unable to sleep. Pain does radiate up up her leg and down to her foot. She denies ever having sciatica. She claims she was on prednisone with the previous episode and this did help her. She rates her pain currently as severe. She is unable to sleep secondary to her discomfort. She denies any fever or chills. She denies any incontinence. She denies any numbness and weakness. Duration: Day(s): (3) Location: Reports: Lower Extremity, Left Quality: Reports: Ache, Dull, Same as Previous Episode Severity: Severe Improves with: Reports: Immobilization Worsens with: Reports: Movement Associated Symptoms: Reports: No Other Symptoms Left Knee Pain Score (Numeric/FACES): 10 - Related Data Allergies Allergy/AdvReac Type Severity Reaction Status Date / Time hydrocodone [From Vicodin] Allergy Hives Verified 11/19/20 02:12 Home Meds: Home Meds Dapagliflozin Propanediol [Farxiga] 5 mg PO QAM 09/02/19 [History] Escitalopram [Lexapro] 20 mg PO DAILY 09/02/19 [History] Metoprolol Succinate 100 mg PO DAILY 09/02/19 [History] Ozempic 1 mg SQ WEEKLY 09/02/19 [History] Rosuvastatin [Crestor] 10 mg PO BEDTIME 09/02/19 [History] lisinopriL [Lisinopril] 30 mg PO DAILY 09/02/19 [History] Famotidine 20 mg PO DAILY 10/12/20 [History] Past Medical History HEENT History: Reports: Impaired Vision Other HEENT History: wears glasses Cardiovascular History: Reports: Hypertension Respiratory History: Reports: Asthma Gastrointestinal History: Reports: Hemorrhoids, Irritable Bowel Syndrome Genitourinary History: Reports: None [employer]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 Musculoskeletal History: Reports: Osteoarthritis Other Musculoskeletal History: shoulder pain, neck pain, resteless leg syndome Neurological History: Reports: Migraines Psychiatric History: Reports: Addiction, Anxiety, Depression Endocrine/Metabolic History: Reports: Diabetes, Type II, Obesity/BMI 30+ Hematologic History: Reports: None Immunologic History: Reports: None Oncologic (Cancer) History: Reports: None Dermatologic History: Reports: Psoriasis Other Dermatologic History: Lipoma to right breadt and to lower right and left back removed - Infectious Disease History Infectious Disease History: Reports: Chicken Pox - Past Surgical History HEENT Surgical History: Reports: Adenoidectomy, Naso-Sinus Surgery, Oral Surgery, Tonsillectomy Other HEENT Surgeries/Procedures: Oral surgery GI Surgical History: Reports: Cholecystectomy Female Surgical History: Reports: Tubal Ligation Musculoskeletal Surgical History: Reports: Arthroscopic Knee, Shoulder Surgery Other Musculoskeletal Surgeries/Procedures:: left rotator cuff surgery; right knee surgery Dermatological Surgical History: Reports: Other (See Below) Social & Family History - Family History Family Medical History: No Pertinent Family History - Caffeine Use Caffeine Use: Reports: Soda - Living Situation & Occupation Living situation: Reports: , with Spouse 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 Constitutional: Reports: No Symptoms Respiratory: Reports: No Symptoms Cardiovascular: Reports: No Symptoms GI/Abdominal: Reports: No Symptoms Musculoskeletal: Reports: Leg Pain, Foot Pain Skin: Reports: No Symptoms ED EXAM, GENERAL - Physical Exam Exam: See Below Exam Limited By: No Limitations General Appearance: Alert, Mild Distress Neck: Normal Inspection, Supple Respiratory/Chest: No Respiratory Distress GI/Abdominal: No Distention Back Exam: Normal Inspection, Full Range of Motion. No: CVA Tenderness (L), CVA Tenderness (R), Decreased Range of Motion, Muscle Spasm, Paraspinal Tenderness, Vertebral Tenderness Extremities: Normal Inspection, Leg Pain. No: Joint Swelling, Limited Range of Motion, Increased Warmth, Mottled, Pallor, Redness Neurological: Alert, Oriented Psychiatric: Normal Affect Skin Exam: Warm, Dry Course - Vital Signs Text/Narrative:: I am starting the patient prednisone 40 mg and giving her a prescription for additional. We will give her an Insta med prescription for [place]. I am advising she try some Voltaren gel. She is to follow-up with her PCP or orthopedic provider if not improving. Return to ER symptoms are worse. Last Recorded V/S: Last Vital Signs Temp 97.1 F 11/19/20 02:07 Pulse 79 11/19/20 02:07 Resp 18 11/19/20 02:07 BP 182/85 H 11/19/20 02:07 Pulse Ox 100 11/19/20 02:07 - Orders/Labs/Meds Orders: Active Orders 24 hr Category Date Time Status predniSONE Med 11/19/20 02:35 Once 40 mg PO ONETIME ONE Medication Orders Prednisone (Prednisone 20 Mg Tab) 40 mg PO ONETIME ONE Stop: 11/19/20 02:36 Meds: Medications Generic Name Dose Route Start Last Admin Trade Name Lenora PRN Reason Stop Dose Admin Prednisone 40 mg 11/19/20 02:35 Prednisone 20 Mg Tab PO 11/19/20 02:36 ONETIME ONE Departure - Departure Time of Disposition: 02:42 Disposition: Home, Self-Care 01 Condition: Good Clinical Impression: Posterior left knee pain, Derangement of knee - Discharge Information *PRESCRIPTION DRUG MONITORING PROGRAM REVIEWED*: No Instructions: Acute Knee Pain, Adult Referrals: Carmita Sarmiento SEMICONDUCTOR PACKAGES SEALER [Primary Care Provider] - Forms: ED Department Discharge Additional Instructions: Ice as needed Voltaren gel [id number]. Prednisone and [place] as prescribed. Follow-up with PCP if not improving. Return to ER if worse. Sepsis Event Note (ED) - Focused Exam Vital Signs: Vital Signs Temp Pulse Resp BP Pulse Ox 11/19/20 02:07 97.1 F 79 18 182/85 H 100 - My Orders Last 24 Hours: My Active Orders 11/19/20 02:35 predniSONE 40 mg PO ONETIME ONE - Assessment/Plan Last 24 Hours: My Active Orders 11/19/20 02:35 predniSONE 40 mg PO ONETIME ONE
[2020-11-19 02:12] VITALS: BP 182/85; PULSE 79
[2020-11-19] MEDS ORDERED: predniSONE 20 MG Tab PO ONE (02:35)
== END 2020-11-19 03:01 | disposition home or self-care (01) ==
LOC: JD.ED 01:53
DX: M23.92 Unspecified internal derangement of left knee (principal); E11.9 Type 2 diabetes mellitus without complications; I10 Essential (primary) hypertension; Z79.899 Other long term (current) drug therapy; Z88.5 Allergy status to narcotic agent
CPT/HCPCS: 99283; J7512

== ENCOUNTER 2021-03-14 23:50 | Emergency (ER) | payer BC ==
[2021-03-15 00:14] VITALS: BP 171/91; PULSE 80
[2021-03-15] MEDS ORDERED: Sodium Chloride 0.9% 10 ML Syringe FLUSH PRN (00:17)
--- NOTE | 2021-03-15 00:35 | EDM.PDOC ---
ED HPI GENERAL MEDICAL PROBLEM - General Chief Complaint: Chest Pain Stated Complaint: CHEST PAIN Time Seen by Provider: 03/14/21 23:57 Source of Information: Reports: Patient History Limitations: Reports: No Limitations - History of Present Illness INITIAL COMMENTS - FREE TEXT/NARRATIVE: Mrs. Yang is a most pleasant 50-year-old woman who now presents the ED with retrosternal chest discomfort that began gradually around 20:00 as she was getting ready for bed. She describes a sensation as a pressure, and states that it is a discomfort, not any pain. She has associated nausea, but denies associated dyspnea or diaphoresis. She states that she has been getting virtually identical symptoms about once a week for the past 5 years, thought due to anxiety. She acknowledges that her current symptoms are no different than her usual symptoms, however, she states that her anxiety is higher than normal, after her cousin yesterday. She states that she has undergone 2 cardiac stress tests in the past, most recently about 10 years ago. At triage, the patient's initial BP was found to be elevated at 171/91, otherwise, she was hemodynamically stable, afebrile, saturating 100% on room air. She appears to be comfortable, in no acute distress. The patient states that she had chills and fever about 2 weeks ago, but tested negative for the SARS-CoV-2 virus on 03/02/2021. Otherwise, prior to 20:00 last night, the patient denies having a recent fever, chills, sore throat, ear pain, nasal or sinus congestion, cough, dyspnea, chest pain, palpitations, nausea, vomiting, constipation, diarrhea, abdominal pain, urinary symptoms, recent weight gain or weight loss, recent bloody bowel movements or black bowel movements, recent joint aches, headaches, or rashes. The patient's PCP is Carmita Sarmiento NP. Her Orthopedic surgeon is Dr. Wilner Castaneda. She has not received a COVID vaccination, nor an influenza vaccination this season. Chest Pain Score (Numeric/FACES): 4 - Related Data Allergies Allergy/AdvReac Type Severity Reaction Status Date / Time hydrocodone [From Vicodin] Allergy Hives Verified 03/14/21 23:57 Home Meds: Home Meds Dapagliflozin Propanediol [Farxiga] 5 mg PO QAM 09/02/19 [History] Escitalopram [Lexapro] 20 mg PO DAILY 09/02/19 [History] Metoprolol Succinate 100 mg PO DAILY 09/02/19 [History] Ozempic 1 mg SQ WEEKLY 09/02/19 [History] Rosuvastatin [Crestor] 10 mg PO BEDTIME 09/02/19 [History] lisinopriL [Lisinopril] 30 mg PO DAILY 09/02/19 [History] Famotidine 20 mg PO DAILY 10/12/20 [History] Past Medical History HEENT History: Reports: Impaired Vision (wears glasses) Cardiovascular History: Reports: Hypertension Gastrointestinal History: Reports: Hemorrhoids, Irritable Bowel Syndrome Musculoskeletal History: Reports: Osteoarthritis Psychiatric History: Reports: Addiction (alcohol, cocaine, opioids), Anxiety, Depression, Other (See Below) (Fibromyalgia. Restless leg syndrome.) Endocrine/Metabolic History: Reports: Diabetes, Type II, Obesity/BMI 30+ Dermatologic History: Reports: Psoriasis - Infectious Disease History Infectious Disease History: Reports: Chicken Pox, Novel Coronavirus (dx'd 03/15/2021) - Past Surgical History HEENT Surgical History: Reports: Adenoidectomy, Naso-Sinus Surgery (rhinoplasty), Oral Surgery (dental extractions), Tonsillectomy GI Surgical History: Reports: Cholecystectomy (1997) Female Surgical History: Reports: Tubal Ligation Musculoskeletal Surgical History: Reports: Arthroscopic Knee (right), Shoulder Surgery (left, open) Dermatological Surgical History: Reports: Other (See Below) (Several lipomas removed) Social & Family History - Tobacco Use Tobacco Use Status *Q: Current Every Day Tobacco User Years of Tobacco use: 35 Packs/Tins Daily: 0.4 Packs/Tins Daily Comment: Down from 2 ppd Tobacco Use Comment: Started smoking 1986 - Caffeine Use Caffeine Use: Reports: None - Alcohol Use Alcohol Use History: Yes Date/Time of Last Drink Comment: Sober since 1997 - Recreational Drug Use Recreational Drug Use: Yes Drug Use in Last 12 Months: No Recreational Drug Type: Reports: Cocaine (last used 1997), Marijuana/Hashish (last smoked 1997), Other (see below) (Opioids, last abused 1997) - Living Situation & Occupation Living situation: Reports: , with Spouse 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 ED EXAM, GENERAL - Physical Exam Exam: See Below Exam Limited By: No Limitations General Appearance: Alert, WD/WN, No Apparent Distress Eye Exam: Bilateral Eye: EOMI, Normal Inspection Ears: Normal External Exam, Hearing Grossly Normal Nose: Normal Inspection Throat/Mouth: Normal Inspection, Normal Lips, Normal Voice, No Airway Compromise Head: Atraumatic, Normocephalic Neck: Normal Inspection, Full Range of Motion Respiratory/Chest: No Respiratory Distress, Lungs Clear, Normal Breath Sounds, No Accessory Muscle Use, Chest Non-Tender, Other (No pain induced with having the patient press her hands together with outstretched arms in front of her) Cardiovascular: Normal Peripheral Pulses, Regular Rate, Rhythm, No Edema, No Gallop, No JVD, No Murmur, No Rub Peripheral Pulses: 3+: Radial (L), Radial (R) GI/Abdominal: Normal Bowel Sounds, Soft, Non-Tender, No Organomegaly, No Distention, No Abnormal Bruit, No Mass Back Exam: Normal Inspection, Full Range of Motion, NT Extremities: Normal Inspection, Normal Range of Motion, No Pedal Edema, Normal Capillary Refill Neurological: Alert, Oriented, Normal Cognition, No Motor/Sensory Deficits Psychiatric: Normal Affect Skin Exam: Warm, Dry, Intact, Normal Color, No Rash #1 Interpretation EKG Date: 03/15/21 Time: 00:05 Rhythm: NSR Rate (Beats/Min): 79 [place]: Normal P-Wave: Present (Borderline 1st degree AVB) QRS: Normal ST-T: Normal QT: Normal Comparison: No Change (07/30/2019) Course - Vital Signs Last Recorded V/S: Last Vital Signs Temp 35.8 C L 03/14/21 23:59 Pulse 80 03/14/21 23:59 Resp 17 03/14/21 23:59 BP 171/91 H 03/14/21 23:59 Pulse Ox 100 03/14/21 23:59 - Orders/Labs/Meds Orders: Active Orders 24 hr Category Date Time Status Cardiac Monitoring [RC] . DIRECTED Care 03/15/21 00:17 Active Peripheral IV Care [RC] . DIRECTED Care 03/15/21 00:17 Active Vital Signs [RC] Q15M Care 03/15/21 01:40 Active Chest 1V Frontal [CR] Stat Exams 03/15/21 00:17 Taken EPINEPHrine [Adrenalin] Med 03/15/21 01:40 Active 0.3 mg IM ASDIRECTED PRN Famotidine [Pepcid] Med 03/15/21 01:40 Active 20 mg IVPUSH ASDIRECTED PRN Sodium Chloride 0.9% [Saline Flush] Med 03/15/21 00:17 Active 10 ml FLUSH ASDIRECTED PRN Sodium Chloride 0.9% [Saline Flush] Med 03/15/21 01:45 Active 30 ml FLUSH ASDIRECTED diphenhydrAMINE [Benadryl] Med 03/15/21 01:40 Active 50 mg IVPUSH ASDIRECTED PRN methylPREDNISolone Sod Succ [Solu-MEDROL] Med 03/15/21 01:40 Active 125 mg IVPUSH ASDIRECTED PRN Peripheral IV Insertion Adult [OM.PC] Stat Oth 03/15/21 00:17 Ordered Medication Orders Diphenhydramine HCl (Diphenhydramine 50 Mg/Ml Sdv) 50 mg IVPUSH ASDIRECTED PRN PRN Reason: hypersensitivity reaction Epinephrine HCl (Epinephrine 1 Mg/Ml Sdv) 0.3 mg IM ASDIRECTED PRN PRN Reason: hypersensitivity reaction Famotidine (Famotidine 20 Mg/2 Ml Sdv) 20 mg IVPUSH ASDIRECTED PRN PRN Reason: hypersensitivity reaction Methylprednisolone Sodium Succinate (Methylprednisolone Sodium Succinate 125 Mg/2 Ml Sdv) 125 mg IVPUSH ASDIRECTED PRN PRN Reason: hypersensitivity reaction Sodium Chloride (Sodium Chloride 0.9% 10 Ml Syringe) 10 ml FLUSH ASDIRECTED PRN PRN Reason: Keep Vein Open Last Admin: 03/15/21 00:20 Dose: 10 ml Documented by: DENAE Sodium Chloride (Sodium Chloride 0.9% 10 Ml Syringe) 30 ml FLUSH ASDIRECTED [facility] Labs: Laboratory Tests 03/15/21 03/15/21 03/15/21 Range/Units 00:05 00:09 00:09 WBC 8.11 (3.98-10.04) K/mm3 RBC 4.85 (3.98-5.22) M/mm3 Hgb 14.7 (11.2-15.7) gm/dl Hct 42.2 (34.1-44.9) % MCV 87.0 (79.4-94.8) fl MCH 30.3 (25.6-32.2) pg MCHC 34.8 (32.2-35.5) g/dl RDW Std Deviation 40.7 (36.4-46.3) fL Plt Count 199 D (182-369) K/mm3 MPV 10.4 (9.4-12.3) fl Neut % (Auto) 56.9 (34.0-71.1) % Lymph % (Auto) 28.2 (19.3-51.7) % [place] % (Auto) 11.2 (4.7-12.5) % Eos % (Auto) 3.1 (0.7-5.8) Baso % (Auto) 0.5 (0.1-1.2) % Neut # (Auto) 4.61 (1.56-6.13) K/mm3 Lymph # (Auto) 2.29 (1.18-3.74) K/mm3 [place] # (Auto) 0.91 H (0.24-0.36) K/mm3 Eos # (Auto) 0.25 (0.04-0.36) K/mm3 Baso # (Auto) 0.04 (0.01-0.08) K/mm3 PT 11.2 (9.7-12.0) SECONDS INR 1.01 D-Dimer, Quantitative 0.32 (0.19-0.50) mg/L Sodium (136-145) mEq/L Potassium (3.5-5.1) mEq/L Chloride (98-107) mEq/L Carbon Dioxide (21-32) mEq/L Anion Gap (5-15) BUN (7-18) mg/dL Creatinine (0.55-1.02) mg/dL Est Cr Clr Drug Dosing mL/min Estimated GFR (MDRD) (>60) mL/min BUN/Creatinine Ratio (14-18) Glucose (70-99) mg/dL Calcium (8.5-10.1) mg/dL Magnesium (1.8-2.4) mg/dL Total Bilirubin (0.2-1.0) mg/dL AST (15-37) U/L ALT (14-59) U/L Alkaline Phosphatase (46-116) U/L Troponin I (0.00-0.056) ng/mL Total Protein (6.4-8.2) g/dl Albumin (3.4-5.0) g/dl Globulin gm/dL Albumin/Globulin Ratio (1-2) Influenza Type A RNA Negative (NEGATIVE) Influenza Type B RNA Negative (NEGATIVE) SARS-CoV-2 RNA (AIMEE) Positive H (NEGATIVE) 03/15/21 Range/Units 00:09 WBC (3.98-10.04) K/mm3 RBC (3.98-5.22) M/mm3 Hgb (11.2-15.7) gm/dl Hct (34.1-44.9) % MCV (79.4-94.8) fl MCH (25.6-32.2) pg MCHC (32.2-35.5) g/dl RDW Std Deviation (36.4-46.3) fL Plt Count (182-369) K/mm3 MPV (9.4-12.3) fl Neut % (Auto) (34.0-71.1) % Lymph % (Auto) (19.3-51.7) % [place] % (Auto) (4.7-12.5) % Eos % (Auto) (0.7-5.8) Baso % (Auto) (0.1-1.2) % Neut # (Auto) (1.56-6.13) K/mm3 Lymph # (Auto) (1.18-3.74) K/mm3 [place] # (Auto) (0.24-0.36) K/mm3 Eos # (Auto) (0.04-0.36) K/mm3 Baso # (Auto) (0.01-0.08) K/mm3 PT (9.7-12.0) SECONDS INR D-Dimer, Quantitative (0.19-0.50) mg/L Sodium 141 (136-145) mEq/L Potassium 3.7 (3.5-5.1) mEq/L Chloride 105 (98-107) mEq/L Carbon Dioxide 27 (21-32) mEq/L Anion Gap 12.7 (5-15) BUN 22 H (7-18) mg/dL Creatinine 0.9 (0.55-1.02) mg/dL Est Cr Clr Drug Dosing 60.49 mL/min Estimated GFR (MDRD) > 60 (>60) mL/min BUN/Creatinine Ratio 24.4 H (14-18) Glucose 179 H (70-99) mg/dL Calcium 8.7 (8.5-10.1) mg/dL Magnesium 2.0 (1.8-2.4) mg/dL Total Bilirubin 0.5 (0.2-1.0) mg/dL AST 22 (15-37) U/L ALT 39 (14-59) U/L Alkaline Phosphatase 105 (46-116) U/L Troponin I < 0.017 (0.00-0.056) ng/mL Total Protein 7.8 (6.4-8.2) g/dl Albumin 4.1 (3.4-5.0) g/dl Globulin 3.7 gm/dL Albumin/Globulin Ratio 1.1 (1-2) Influenza Type A RNA (NEGATIVE) Influenza Type B RNA (NEGATIVE) SARS-CoV-2 RNA (AIMEE) (NEGATIVE) Meds: Medications Generic Name Dose Route Start Last Admin Trade Name Freq PRN Reason Stop Dose Admin Diphenhydramine HCl 50 mg 03/15/21 01:40 Diphenhydramine 50 Mg/Ml Sdv IVPUSH ASDIRECTED PRN hypersensitivity reaction Epinephrine HCl 0.3 mg 03/15/21 01:40 Epinephrine 1 Mg/Ml Sdv IM ASDIRECTED PRN hypersensitivity reaction Famotidine 20 mg 03/15/21 01:40 Famotidine 20 Mg/2 Ml Sdv IVPUSH ASDIRECTED PRN hypersensitivity reaction Methylprednisolone Sodium Succinate 125 mg 03/15/21 01:40 Methylprednisolone Sodium Succinate 125 Mg/2 Ml Sdv IVPUSH ASDIRECTED PRN hypersensitivity reaction Sodium Chloride 10 ml 03/15/21 00:17 03/15/21 00:20 Sodium Chloride 0.9% 10 Ml Syringe FLUSH 10 ml ASDIRECTED PRN Administration Keep Vein Open Sodium Chloride 30 ml 03/15/21 01:45 Sodium Chloride 0.9% 10 Ml Syringe FLUSH ASDIRECTED KERRI Discontinued Medications Generic Name Dose Route Start Last Admin Trade Name Freq PRN Reason Stop Dose Admin SOTROVIMAB 500 mg/ Sodium 108 mls @ 216 mls/hr 03/15/21 01:40 03/15/21 02:12 Chloride IV 03/15/21 02:09 216 mls/hr ONETIME ONE Administration - Re-Assessments/Exams Free Text/Narrative Re-Assessment/Exam: 03/15/21 00:28 An ECG, obtained at triage, is grossly unremarkable, with no ischemic changes. As above, the patient's chest pain is recurrent and completely unchanged from her usual recurring pain, that is thought related to anxiety, and the patient states that she is more anxious than usual, after her cousin yesterday. A work-up, including several blood tests, a swab for the SARS-CoV-2 virus and influenza A + B viruses, and a portable chest x-ray were ordered at triage. 03/15/21 01:14 Portable chest radiograph appears to be grossly normal. The cardiac silhouette is within normal limits. No pulmonary vascular congestion. No pleural effusions seen on this AP view. No focal infiltrate. No pneumothorax. Formal read per the Radiologist pending. The patient's CBC is unremarkable. Her CMP is remarkable for hyperglycemia of 179, and is otherwise unremarkable. Her magnesium level is within normal limits at 2.0. Her troponin is undetectably low. Her D-dimer is within normal limits at 0.32. Her PT/INR are within normal limits. Her swab for the SARS-CoV-2 virus and influenza A + B viruses is still pending. 03/15/21 01:25 The patient's swab for the SARS-CoV-2 virus and influenza A + B viruses is positive for the SARS-CoV-2 virus, and negative for influenza. 03/15/21 01:35 Test results discussed with the patient. Based on the patient's BMI and history of diabetes, she is a candidate for an infusion of the monoclonal antibody sotrovimab. We discussed that at length, including that it is an emergency use authorization medication intended to decrease the likelihood of patients diagnosed with COVID-19 from developing severe symptoms or , and that it does not treat her current symptoms. I explained that sotrovimab is still under investigation, that it is not fully FDA approved, and that the potential benefits and risks of the medication are not fully known. The patient was notified that if she receives sotrovimab, that it may decrease her immune response to a COVID vaccination, should she decide to get it after she recovers from her current illness. I explained that there is a possibility that she could have an allergic reaction either during or after the infusion, as well as brief pain, bleeding, bruising of the skin, soreness, swelling, and possible infection at the infusion site. Other side effects could occur. I discussed that there are other potential treatment options that are currently not FDA approved to treat COVID-19. The patient was notified that the infusion takes about half an hour to an hour, after which she would be expected to remain in the ED for another hour to observe for possible side effects. She was offered the "Patient and caregiver HEATHER sotrovimab fact sheet" to read and review. All questions were answered. The patient expressed understanding, and would like to proceed with the infusion. Departure - Departure Time of Disposition: 03:41 Disposition: Home, Self-Care 01 Condition: Good Clinical Impression: COVID-19, Non-cardiac chest pain, Anxiety disorder - Discharge Information *PRESCRIPTION DRUG MONITORING PROGRAM REVIEWED*: Not Applicable *COPY OF PRESCRIPTION DRUG MONITORING REPORT IN PATIENT [place]: Not Applicable Instructions: COVID-19 Referrals: Carmita Sarmiento NP [Primary Care Provider] - Wilner Castaneda MD [Physician] - Forms: ED Department Discharge, ED Return to Work/School Form Additional Instructions: You were seen in the emergency room after developing mid-chest pressure and nausea. Work-up in the ER included several blood tests, a swab for the SARS-CoV-2 virus and influenza A + B viruses, a chest x-ray, and an ECG. Your blood sugar returned modestly elevated at 179, and your swab for the SARS-CoV-2 virus returned positive, indicating that you have, or recently had, COVID-19. The remainder of your work-up was unremarkable. You were treated with an infusion of the monoclonal antibodies sotrovimab. As discussed, monoclonal antibodies are not expected to treat your current symptoms, but decrease the likelihood that you will go on to have significant complications from COVID-19, such as the requirement for hospitalization, intubation, or . As discussed, you will need to wait 90 days before you can receive a COVID vaccination. As discussed, if you want to find out if you are still infectious, a home COVID test can answer that. We recommend that you stay adequately hydrated and take [id number] ibuprofen as needed for discomfort. We do not recommend you take any [id number] cough or cold remedies, as they have been shown to be of no benefit, but do have side effects, such as an upset stomach. If any other problems, please do not hesitate to return to the ER. Sepsis Event Note (ED) - Evaluation Sepsis Screening Result: No Definite Risk - Focused Exam Vital Signs: Vital Signs Temp Pulse Resp BP Pulse Ox 03/14/21 23:59 35.8 C L 80 17 171/91 H 100 - My Orders Last 24 Hours: My Active Orders 03/15/21 00:17 Cardiac Monitoring [RC] . DIRECTED Peripheral IV Care [RC] . DIRECTED Chest 1V Frontal [CR] Stat Sodium Chloride 0.9% [Saline Flush] 10 ml FLUSH ASDIRECTED PRN Peripheral IV Insertion Adult [OM.PC] Stat 03/15/21 01:40 Vital Signs [RC] Q15M EPINEPHrine [Adrenalin] 0.3 mg IM ASDIRECTED PRN Famotidine [Pepcid] 20 mg IVPUSH ASDIRECTED PRN diphenhydrAMINE [Benadryl] 50 mg IVPUSH ASDIRECTED PRN methylPREDNISolone Sod Succ [Solu-MEDROL] 125 mg IVPUSH ASDIRECTED PRN 03/15/21 01:45 Sodium Chloride 0.9% [Saline Flush] 30 ml FLUSH ASDIRECTED - Assessment/Plan Last 24 Hours: My Active Orders 03/15/21 00:17 Cardiac Monitoring [RC] . DIRECTED Peripheral IV Care [RC] . DIRECTED Chest 1V Frontal [CR] Stat Sodium Chloride 0.9% [Saline Flush] 10 ml FLUSH ASDIRECTED PRN Peripheral IV Insertion Adult [OM.PC] Stat 03/15/21 01:40 Vital Signs [RC] Q15M EPINEPHrine [Adrenalin] 0.3 mg IM ASDIRECTED PRN Famotidine [Pepcid] 20 mg IVPUSH ASDIRECTED PRN diphenhydrAMINE [Benadryl] 50 mg IVPUSH ASDIRECTED PRN methylPREDNISolone Sod Succ [Solu-MEDROL] 125 mg IVPUSH ASDIRECTED PRN 03/15/21 01:45 Sodium Chloride 0.9% [Saline Flush] 30 ml FLUSH ASDIRECTED
[2021-03-15 01:25] LABS: CORONAVIRUS COVID-19 NAA POSITIVE (NEGATIVE)
[2021-03-15] MEDS ORDERED: Famotidine 20 MG/2 ML SDV IVPUSH PRN (01:40)
[2021-03-15] MEDS ORDERED: EPINEPHrine 1 MG/ML SDV IM PRN (01:40)
[2021-03-15] MEDS ORDERED: methylPREDNISolone Sodium Succinate 125 MG/2 ML SDV IVPUSH PRN (01:40)
[2021-03-15] MEDS ORDERED: diphenhydrAMINE 50 MG/ML SDV IVPUSH PRN (01:40)
[2021-03-15] MEDS ORDERED: Sodium Chloride 0.9% 10 ML Syringe FLUSH SCH (01:45)
--- NOTE | 2021-03-15 09:30 | CR ---
EXAM: CHEST SINGLE VIEW PORTABLE LOCATION: [facility] [employer] [place] DATE/TIME: 03/15/2021 12:33 AM INDICATION: Chest pain. COMPARISON: None. FINDINGS: The lungs are clear. Normal size cardiac silhouette. Surgical clips in the upper right hemiabdomen likely relate to prior cholecystectomy. IMPRESSION: No evidence of active cardiopulmonary disease. SIGNED BY: Cesar Crouch MD 03/15/2021 1:41 AM MARIELLA
== END 2021-03-15 03:48 | disposition home or self-care (01) ==
LOC: JD.ED 23:50
DX: U07.1 COVID-19 (principal); R07.2 Precordial pain; F41.9 Anxiety disorder, unspecified; I10 Essential (primary) hypertension; E11.9 Type 2 diabetes mellitus without complications; E66.9 Obesity, unspecified; Z68.30 Body mass index [BMI] 30.0-30.9, adult; Z88.5 Allergy status to narcotic agent; Z79.899 Other long term (current) drug therapy; Z86.16 Personal history of COVID-19; Z72.0 Tobacco use
CPT/HCPCS: 0240U; 36415; 71045; 71045-26; 80053; 83735; 84484; 85025; 85379; 85610; 93005; 99285-25; M0247; Q0247

== ENCOUNTER 2021-05-09 16:20 | Emergency (ER) | payer BC ==
[2021-05-09 16:52] VITALS: BP 145/70; PULSE 89
[2021-05-09] MEDS ORDERED: Orphenadrine 100 MG Tab.ER PO STA (17:20)
[2021-05-09] MEDS ORDERED: Ketorolac 60 MG/2 ML SDV IM ONE (17:20)
[2021-05-09] MEDS ORDERED: Acetaminophen/oxyCODONE 325-5 MG Tab PO ONE (18:49)
== END 2021-05-09 19:17 | disposition home or self-care (01) ==
LOC: JD.ED 16:20
DX: M54.41 Lumbago with sciatica, right side (principal); I10 Essential (primary) hypertension; J45.909 Unspecified asthma, uncomplicated; E11.9 Type 2 diabetes mellitus without complications; M19.90 Unspecified osteoarthritis, unspecified site; E66.9 Obesity, unspecified; Z68.30 Body mass index [BMI] 30.0-30.9, adult; Z88.5 Allergy status to narcotic agent; Z79.899 Other long term (current) drug therapy; Z72.0 Tobacco use
CPT/HCPCS: 73502; 96372; 99283; A9270; J1885; 99284

== ENCOUNTER 2021-05-28 19:16 | Emergency (ER) | payer BC ==
[2021-05-28 19:24] VITALS: PULSE 76
[2021-05-28] MEDS ORDERED: Sodium Chloride 0.9% 10 ML Syringe FLUSH PRN (19:29)
[2021-05-28] MEDS ORDERED: Sodium Chloride 0.9% 1,000 ML IV ONE (19:35)
[2021-05-28] MEDS ORDERED: Ondansetron 4 MG/2 ML SDV IVPUSH ONE (19:35)
[2021-05-28] MEDS: Alum Hydrox/Mag Hydrox/Simeth 30 ML, Lidocaine 2% 15 ML PO ONE ×4 (19:50→20:10)
[2021-05-28] MEDS ORDERED: Promethazine 25 MG in Sodium Chloride 0.9% 50 ML IV ONE (21:13)
[2021-05-28] MEDS ORDERED: LORazepam 2 MG/ML SDV IVPUSH ONE (21:14)
[2021-05-28 22:20] VITALS: BP 136/74
== END 2021-05-28 22:19 | disposition home or self-care (01) ==
LOC: JD.ED 19:16
DX: R07.2 Precordial pain (principal); F41.9 Anxiety disorder, unspecified; I10 Essential (primary) hypertension; E11.9 Type 2 diabetes mellitus without complications; E66.9 Obesity, unspecified; Z68.30 Body mass index [BMI] 30.0-30.9, adult; Z88.5 Allergy status to narcotic agent; Z79.899 Other long term (current) drug therapy; Z86.16 Personal history of COVID-19
CPT/HCPCS: 36415; 71045; 80053; 83735; 83880; 84484; 85025; 85610; 85730; 93005; 96365; 96375; 99285; A9270; J2060; J2405; J2550; J7030

== ENCOUNTER 2022-01-25 20:08 | Emergency (ER) | payer BC ==
[2022-01-25 21:25] LABS: ESTIMATED GFR 60 mL/min (>60)
[2022-01-25] MEDS ORDERED: Potassium Chloride 20 MEQ Tab.ER PO ONE (21:44)
[2022-01-25 22:32] LABS: CORONAVIRUS COVID-19 NAA POSITIVE (NEGATIVE)
[2022-01-25] MEDS ORDERED: Insulin Regular, Human 100 Units/ML 3 ML Vial SUBCUT STA (22:45)
[2022-01-25 23:35] VITALS: BP 142/73; PULSE 93
== END 2022-01-25 23:29 | disposition home or self-care (01) ==
LOC: JD.ED 20:08
DX: U07.1 COVID-19 (principal); E11.65 Type 2 diabetes mellitus with hyperglycemia; E87.6 Hypokalemia; I10 Essential (primary) hypertension; K21.9 Gastro-esophageal reflux disease without esophagitis; E11.9 Type 2 diabetes mellitus without complications; F17.210 Nicotine dependence, cigarettes, uncomplicated; E66.9 Obesity, unspecified; Z68.30 Body mass index [BMI] 30.0-30.9, adult; Z88.5 Allergy status to narcotic agent; Z79.84 Long term (current) use of oral hypoglycemic drugs; Z79.899 Other long term (current) drug therapy
CPT/HCPCS: 0240U; 36415; 71046; 80053; 83605; 83735; 83880; 84484; 85025; 85379; 86140; 93005; 99284; A9270; J1815

== ENCOUNTER 2022-09-17 16:59 | Emergency (ER) | payer BC ==
[2022-09-17] MEDS ORDERED: Ketorolac 60 MG/2 ML SDV IM ONE (17:34)
[2022-09-17 19:17] VITALS: BP 132/66; PULSE 78
== END 2022-09-17 19:10 | disposition home or self-care (01) ==
LOC: JD.ED 16:59
DX: M25.562 Pain in left knee (principal); F17.210 Nicotine dependence, cigarettes, uncomplicated; Z79.84 Long term (current) use of oral hypoglycemic drugs; Z79.899 Other long term (current) drug therapy; J45.909 Unspecified asthma, uncomplicated; E78.00 Pure hypercholesterolemia, unspecified; E66.9 Obesity, unspecified; Z68.33 Body mass index [BMI] 33.0-33.9, adult; E11.9 Type 2 diabetes mellitus without complications; Z86.16 Personal history of COVID-19; Z88.1 Allergy status to other antibiotic agents; Z88.5 Allergy status to narcotic agent
CPT/HCPCS: 73564; 96372; 99283; J1885

== ENCOUNTER 2022-11-28 06:58 | Day surgery (SDC) | payer BC ==
[2022-11-28] MEDS ORDERED: Lactated Ringers 1,000 ML IV ONE (06:59)
[2022-11-28] MEDS ORDERED: Acetaminophen 325 MG Tab PO ONE (07:00)
[2022-11-28] MEDS ORDERED: Sodium Chloride 0.9% 1,000 ML IV SCH (07:00)
[2022-11-28] MEDS ORDERED: oxyCODONE ER 10 MG TAB.ER PO ONE (07:00)
[2022-11-28] MEDS ORDERED: Pregabalin 25 MG Cap PO ONE (07:00)
[2022-11-28] MEDS ORDERED: Sodium Chloride 0.9% 10 ML Syringe FLUSH PRN (07:00)
[2022-11-28] MEDS ORDERED: EPINEPHrine 1 MG/ML SDV ONE (07:07)
[2022-11-28] MEDS ORDERED: Ropivacaine 0.5% 5 MG/ML 30 ML SDV ONE (07:07)
[2022-11-28] MEDS ORDERED: Albuterol 0.083% 2.5 MG/3 ML Neb Soln NEB SCH (07:33)
[2022-11-28] MEDS ORDERED: fentaNYL 100 MCG/2 ML SDV ONE (07:53)
[2022-11-28] MEDS ORDERED: Lidocaine 1% 5 ML VIAL ONE (07:53)
[2022-11-28] MEDS ORDERED: Ondansetron 4 MG/2 ML SDV ONE (07:53)
[2022-11-28] MEDS ORDERED: Dexamethasone 4 MG/ML 5 ML MDV ONE (07:53)
[2022-11-28] MEDS ORDERED: Midazolam 1 MG/ML 2 ML SDV ONE ×2 (07:53→07:56)
[2022-11-28] MEDS ORDERED: Propofol 200 MG/20 ML SDV ONE ×2 (07:53→09:42)
[2022-11-28] MEDS ORDERED: Tranexamic Acid 1,000 MG/10 ML Vial ONE (07:55)
[2022-11-28] MEDS ORDERED: Vancomycin 1 GM SDV ONE (07:55)
[2022-11-28] MEDS ORDERED: Lactated Ringers 1,000 ML ONE ×2 (07:58→09:42)
[2022-11-28] MEDS ORDERED: ceFAZolin 2 GM Vial ONE (08:00)
[2022-11-28] MEDS ORDERED: HYDROmorphone 0.5 MG/0.5 ML Syringe IVPUSH PRN (08:35)
[2022-11-28] MEDS ORDERED: fentaNYL 100 MCG/2 ML SDV IVPUSH PRN (08:35)
[2022-11-28] MEDS ORDERED: Ondansetron 4 MG/2 ML SDV IVPUSH PRN (08:35)
[2022-11-28] MEDS ORDERED: Dexmedetomidine 200 MCG/2 ML SDV ONE (08:41)
[2022-11-28] MEDS ORDERED: Phenylephrine 1% 10 MG/ML SDV ONE ×2 (08:44→09:30)
[2022-11-28] MEDS ORDERED: ePHEDrine 50 MG/ML SDV ONE (08:56)
[2022-11-28] MEDS: Morphine 8 MG, EPINEPHrine 0.3 MG, Ketorolac 30 MG, Sodium Chloride 0.9% 7.9 ML PRN ×8 (09:22→09:51)
[2022-11-28] MEDS ORDERED: Ketorolac 30 MG/ML SDV ONE (09:55)
[2022-11-28] MEDS ORDERED: oxyCODONE 5 MG Tab PO ONE (10:29)
[2022-11-28] MEDS ORDERED: oxyCODONE 5 MG Tab PO SCH (12:45)
[2022-11-28 16:32] VITALS: BP 119/72; PULSE 82
== END 2022-11-28 15:53 | disposition home or self-care (01) ==
LOC: JD.SDS 06:58
PROVIDERS: ATTEND Orthopaedic Surgery
DX: M17.12 Unilateral primary osteoarthritis, left knee (principal); J30.9 Allergic rhinitis, unspecified; I10 Essential (primary) hypertension; F41.8 Other specified anxiety disorders; K21.9 Gastro-esophageal reflux disease without esophagitis; K44.9 Diaphragmatic hernia without obstruction or gangrene; M25.551 Pain in right hip; G47.00 Insomnia, unspecified; G43.909 Migraine, unspecified, not intractable, without status migrainosus; M71.22 Synovial cyst of popliteal space [Baker], left knee; E11.9 Type 2 diabetes mellitus without complications; Z79.4 Long term (current) use of insulin; Z88.8 Allergy status to other drugs, medicaments and biological substances; Z98.890 Other specified postprocedural states; Z98.51 Tubal ligation status; F17.210 Nicotine dependence, cigarettes, uncomplicated; Z79.899 Other long term (current) drug therapy; J45.909 Unspecified asthma, uncomplicated; Z88.5 Allergy status to narcotic agent; Z88.1 Allergy status to other antibiotic agents; E66.9 Obesity, unspecified
CPT/HCPCS: 27447; 64447; 73560; 97110; 97116; 97161; A9270; C1713; C1776; J0171; J0690; J1100; J1885; J2250; J2270; J2371; J2405; J2704; J2795; J3010; J3370; J7030; J7120; 01402; J3490; J7620-GY

== ENCOUNTER 2022-12-03 12:36 | Emergency (ER) | payer BC ==
[2022-12-03] MEDS ORDERED: HYDROmorphone 0.5 MG/0.5 ML Syringe IM ONE (13:01)
[2022-12-03 14:25] VITALS: BP 120/65; PULSE 72
== END 2022-12-03 14:20 | disposition home or self-care (01) ==
LOC: JD.ED 12:36
DX: G89.18 Other acute postprocedural pain (principal); M25.562 Pain in left knee; I10 Essential (primary) hypertension; E78.00 Pure hypercholesterolemia, unspecified; J45.909 Unspecified asthma, uncomplicated; K21.9 Gastro-esophageal reflux disease without esophagitis; E11.9 Type 2 diabetes mellitus without complications; E66.9 Obesity, unspecified; F17.210 Nicotine dependence, cigarettes, uncomplicated; Z68.29 Body mass index [BMI] 29.0-29.9, adult; Z86.16 Personal history of COVID-19; Z88.5 Allergy status to narcotic agent; Z88.1 Allergy status to other antibiotic agents; Z79.4 Long term (current) use of insulin; Z79.899 Other long term (current) drug therapy; Z96.651 Presence of right artificial knee joint
CPT/HCPCS: 73560; 96372; 99283; J1170